=== PATIENT | male | born 1950 | race Caucasian/White ===

== ENCOUNTER 2017-12-20 17:07 | Emergency (ER) | payer OTHER, MEDICARE, SELFPAY ==
[2017-12-20 17:08] VITALS: BP 122/80; PULSE 88; RESP 13; TEMP 36.2; O2SAT 99
--- NOTE | 2017-12-20 17:30 | ED.NEUROSD ---
HPI - Neuro Symptoms/Deficit General Chief Complaint: Neuro Symptoms/Deficit Stated Complaint: thinks he had a stroke Time Seen by Provider: 12/20/17 17:27 Source: patient Mode of arrival: ambulatory Limitations: no limitations History of Present Illness HPI Narrative: Patient is a 67-year-old male here for evaluation of right arm tingling and concerns of dizziness. Patient states that it sometime today he is unsure the exact onset he had tingling of his right arm. He states that he feels that his symptoms have somewhat improved since the onset this morning. He describes a dizziness but not a vertigo sensation. Very difficult for him to describe the sensation. No other symptoms to include headache, vision changes. On Anticoagulants: No Related Data Home Medications Medication Instructions Recorded Confirmed hydrochlorothiazide 12.5 mg PO QDAY #0 12/08/16 amlodipine 10 mg PO Q DAY #0 05/16/17 cholecalciferol (vitamin D3) 1,000 unit PO Q DAY #0 05/16/17 ferrous gluconate 65 mg PO Q DAY #0 05/16/17 multivitamin [Multiple Vitamins] 2 tab PO QDAY #0 05/16/17 propranolol 10 mg PO Q DAY #0 05/16/17 bisacodyl [Fleet Laxative] 5 mg PO PRN PRN #0 05/23/17 Previous Rx's Medication Instructions Recorded gabapentin [Neurontin] 300 mg PO BID #60 cap 06/01/17 hydrocodone-acetaminophen 0 tab PO Q4HPP PRN #30 06/01/17 Review of Systems Constitutional Denies fatigue, Denies fever(s), Denies headache(s), Denies lethargy and Denies weakness Eyes Denies blurry vision, Denies change in vision and Denies loss of vision ENT Ears, Nose, Mouth, and Throat: Denies dental pain, Denies vertigo, Reports dizziness, Denies headache(s) and Reports disequilibrium Cardiovascular Denies chest pain, Denies syncope, Denies irregular heart rhythm, Denies palpitations, Denies dyspnea and Denies slow heart rate Respiratory Denies cough and Denies dyspnea Gastrointestinal Gastrointestinal: Denies abdominal pain, Denies nausea and Denies vomiting Musculoskeletal Denies abnormal gait and Reports tingling Integumentary/Breasts Denies lesions and Denies rash Neurologic Denies abnormal movements, Denies abnormal speech, Denies abnormal gait, Denies behavioral changes, Denies confusion, Denies vertigo, Reports dizziness, Denies syncope, Denies headache(s), Denies loss of vision, Denies radicular pain, Reports sensory deficit, Reports tingling, Reports paresthesias, Reports disequilibrium and Denies weakness Psychiatric Denies behavioral changes and Denies confusion Endocrine Denies fatigue and Denies palpitations Hematologic/Lymphatic Denies easy bleeding and Denies easy bruising PFSH Medical History Hypertension (Acute) Surgical History No pertinent past surgical history (Acute) Social History Smoking Status: Current every day smoker Exam Initial Vital Signs Initial Vital Signs: Vital Signs Temperature 97.2 F L 12/20/17 17:08 Pulse Rate 88 12/20/17 17:08 Respiratory Rate 13 12/20/17 17:08 Blood Pressure 122/80 12/20/17 17:08 Pulse Oximetry 99 12/20/17 17:08 Const General: cooperative, healthy appearing, comfortable, well developed, well groomed and No acute distress Orientation: alert, awake and oriented x3 HENMT Head: normal to inspection Ears: hearing grossly normal bilaterally Eyes Pupils: PERRL EOM: EOM intact bilaterally Resp Effort & Inspection: normal respiratory effort Auscultation: clear to auscultation bilaterally Cardio Rate: regular rate Rhythm: regular rhythm Heart Sounds: no murmurs Pulses: radial pulses present GI Inspection: non-distended Palpation: soft Skin Lesions: no lesions Rashes: no rashes Neuro General: alert and oriented x3 Cranial Nerves: CN's II-XI intact bilaterally Cognition: normal cognition Speech: speech normal Gait: normal gait Motor: muscle tone normal throughout Sensory Exam: no sensory deficits noted Extrem General: normal to inspection and capillary refill normal Psych Appearance: grossly normal and well kempt Scores ABCD2 Age >= 60 years: yes Initial BP. Either SBP >= 140 or DBP >= 90.: no Clinical features of the TIA: other symptoms Duration of symptoms: >= 60 minutes History of diabetes: no ABCD2 Score: 3 NIH Stroke Scale Level of Conciousness: Alert, keenly responsive Ask month/age: Answers both questions correctly. Open/close eyes, close hand: Performs both tasks correctly Best gaze horizontal: Normal Visual strickland: No visual loss Facial palsy: Normal symetrical movement Left arm drift: No drift for full 10 sec Right arm drift: No drift for full 10 sec Left leg drift: No drift for full 10 sec Right leg drift: No drift for full 10 sec Limb ataxia: Absent Sensory on face/arms/legs: Normal, no sensory loss Best language: No aphasia, normal Dysarthria: Normal Extinction or inattention: No abnormality Total NIH Stroke scale score: 0 Course Orders Ordered: ED Orders 12/20/17 17:31 CT head/brain wo con Stat 12/20/17 17:47 EKG-12 Lead Stat 12/20/17 17:48 Basic Metabolic Panel Stat Complete Blood Count AUTO DIFF Stat Vital Signs - 8 hr 12/20/17 17:08 12/20/17 18:09 Temperature 97.2 F L Pulse Rate 88 70 Respiratory Rate 13 18 Blood Pressure 122/80 Blood Pressure [Right Arm] 119/72 Pulse Oximetry 99 100 MDM - Neuro Symptoms/Deficit Lab Data Attestation: I reviewed the patient's lab results. Result diagrams: 12/20/17 17:48 12/20/17 17:48 Lab Results 12/20/17 12/20/17 Range/Units 17:48 17:48 WBC 6.6 (4.5-11.0) X10^3/uL RBC 4.21 L (4.5-5.9) X10^6/uL Hgb 13.8 (13.5-17.5) g/dL Hct 40.3 L (41-53) % MCV 95.8 (80-100) fL MCH 32.7 (26-34) PG MCHC 34.1 (30-36) % RDW 14.5 (11.6-14.8) % Plt Count 279 (150-400) X10^3/uL Neut % (Auto) 57.2 (50-75) % Lymph % (Auto) 32.2 (25-40) % [place] % (Auto) 9.2 (3-14) % Eos % (Auto) 0.7 L (2-4) % Baso % (Auto) 0.7 (0-2) % Neut # (Auto) 3800 (1528-2257) /uL Sodium 141 (137-145) mmol/L Potassium 3.9 (3.4-5.1) mmol/L Chloride 101 (98-107) mmol/L Carbon Dioxide 27 (22-32) mmol/L BUN 6 L (9-20) mg/dL Creatinine 0.50 L (0.66-1.25) mg/dL Estimated GFR > 60.0 (>60) mL/min BUN/Creatinine Ratio 12.0 (6-22) Glucose 86 (80-110) mg/dL Calcium 8.9 (8.4-10.2) mg/dL Imaging Data CT scan - head: Radiologist's impression: PROCEDURE: CT HEAD/BRAIN WO CON INDICATIONS: right arm weakness TECHNIQUE: Noncontrast 4.5 mm thick angled axial sections acquired from the foramen magnum to the vertex, with coronal and sagittal reformats. For radiation dose reduction, the following was used: automated exposure control, adjustment of mA and/or kV according to patient size. COMPARISON: None. FINDINGS: Image quality: Excellent. CSF spaces: Basal cisterns are patent. No extra-axial fluid collections. The ventricles are symmetric in size and shape. Brain: No intracranial bleeds or masses. There is cerebral volume loss for age, with resultant ventricular and sulcal prominence. There are periventricular and deep white matter chronic small vessel ischemic changes. There is intracranial internal carotid artery atherosclerosis. Skull and face: Calvarium and visualized facial bones appear intact, without suspicious lesions. Sinuses: Visualized sinuses and mastoids are clear. IMPRESSION: 1. No acute intracranial process. 2. Moderate atrophy and chronic microvascular ischemic changes. Dictated by: Bettina Gonzales M.D. on 12/20/2017 at 17:50 Approved by: Bettina Gonzales M.D. on 12/20/2017 at 17:51 ECG Data Attestation: I personally reviewed and interpreted this ECG as follows: Prior ECG tracings: not available for review Interpretation: Sinus rhythm Left axis deviation Ventricular rate is 74 Normal QRS Normal QTC No ST T wave changes MDM Narrative Medical decision making narrative: Patient's head CT shows no signs of bleed or acute ischemia. He has no objective findings on exam here in the emergency department. He has a ABCD2 score of 3 which places him at low risk of 2 days stroke. We did discuss being admitted to the hospital versus being discharged home. After this discussion the patient would like to be discharged to follow up with his primary doctor on Friday. We did discuss the importance of him taking a full dose aspirin over the next couple days. We did discuss return precautions. Patient expressed understanding and agreement with plan. Discharge Plan Departure Patient Disposition: Home Clinical Impression: TIA (transient ischemic attack), Arm paresthesia, right Instructions: DI for Transient Ischemic Attack Activity Restrictions/Additional Instructions: your symptoms today were somewhat concerning for a TIA. I do recommend that you start taking a full dose aspirin on a daily basis. On Friday you do need to contact your primary care doctor to discuss further workup which may include a MRI, echocardiogram, and carotid Dopplers. If your symptoms return or you develop any new symptoms please return to the emergency department for further evaluation. Prescriptions: No Action hydrochlorothiazide 12.5 MG capsule 12.5 mg PO QDAY Qty: 0 RF: 0 propranolol 10 MG tablet 10 mg PO Q DAY Qty: 0 RF: 0 multivitamin [Multiple Vitamins] 1 EACH tablet 2 tab PO QDAY Qty: 0 RF: 0 amlodipine 10 MG tablet 10 mg PO Q DAY Qty: 0 RF: 0 ferrous gluconate 236 MG tablet 65 mg PO Q DAY Qty: 0 RF: 0 cholecalciferol (vitamin D3) 5,000 UNIT capsule 1,000 unit PO Q DAY Qty: 0 RF: 0 bisacodyl [Fleet Laxative] 5 MG tablet,delayed release (DR/EC) 5 mg PO PRN PRNQty: 0 RF: 0 gabapentin [Neurontin] 300 MG capsule 300 mg PO BID Qty: 60 RF: 0 hydrocodone-acetaminophen 5 MG/325 MG tablet PO Q4HPP PRNQty: 30 RF: 0
[2017-12-20 18:03] LABS: Add Manual Diff / Slide Review NO; Basophils Percent Auto 0.7 % (0-2); Eosinophils Percent Auto 0.7 % (2-4); Hematocrit 40.3 % (41-53); Hemoglobin 13.8 g/dL (13.5-17.5); Lymphocytes Percent Auto 32.2 % (25-40); Mean Corpuscular HGB Conc 34.1 % (30-36); Mean Corpuscular Hemoglobin 32.7 PG (26-34); Mean Corpuscular Volume 95.8 fL (80-100); Monocytes Percent Auto 9.2 % (3-14); Neutrophils Absolute Auto 3800 /uL (3000-5900); Neutrophils Percent Auto 57.2 % (50-75); Platelet Count 279 X10^3/uL (150-400); Red Blood Cell Count 4.21 X10^6/uL (4.5-5.9); Red Cell Distribution Width 14.5 % (11.6-14.8); White Blood Cell Count 6.6 X10^3/uL (4.5-11.0)
[2017-12-20 18:09] VITALS: BP 119/72; PULSE 70; RESP 18; O2SAT 100
[2017-12-20 18:27] LABS: Blood Urea Nitrogen 6 mg/dL (9-20); Calcium 8.9 mg/dL (8.4-10.2); Carbon Dioxide 27 mmol/L (22-32); Chloride 101 mmol/L (98-107); Estimated Glomerular Filt Rate > 60.0 mL/min (>60); Glucose 86 mg/dL (80-110); HEMOLYSIS < 15 (0-50); Potassium 3.9 mmol/L (3.4-5.1); Sodium 141 mmol/L (137-145)
[2017-12-20 19:02] VITALS: BP 120/79; PULSE 72; RESP 16; O2SAT 100
== END 2017-12-20 19:02 | disposition home or self-care (01) ==
PROVIDERS: Emergency Provider Emergency Medicine; PCP Family Medicine
DX: G45.9 Transient cerebral ischemic attack, unspecified (principal); R20.2 Paresthesia of skin
CPT/HCPCS: 36591; 70450; 80048; 85025; 93005; 93010; 99282; 99285; 99291

== ENCOUNTER → 2018-02-05 10:32 | Outpatient (CLI) | payer OTHER, MEDICARE, SELFPAY ==
--- NOTE | 2018-02-05 | DI.US.S_ITS ---
PROCEDURE: US CAROTID DOPPLER BI INDICATIONS: HYPERTENSION TECHNIQUE: Color and pulse Doppler interrogation was performed of both carotid systems, with image documentation and velocity measurements. COMPARISON: None. FINDINGS: Stenosis calculations are based on SRU (Society of Radiologists in Ultrasound) criteria. Right side: Brachial blood pressure: 125/86 mm Hg. Common carotid artery peak systolic velocity: 87 cm/sec. Internal carotid artery peak systolic velocity: 78 cm/sec. Internal carotid artery end diastolic velocity: 21 cm/sec. External carotid artery peak systolic velocity: 132 cm/sec. ICA/CCA peak systolic ratio: 0.9. Pimentel scale imaging description: Minimal plaque. Percent internal carotid artery stenosis: Less than 50%. Vertebral artery: Not visualized. Left side: Brachial blood pressure: 122/85 mm Hg. Common carotid artery peak systolic velocity: 100 cm/sec. Internal carotid artery peak systolic velocity: 19 Internal carotid artery end diastolic velocity: 134 cm/sec. External carotid artery peak systolic velocity: 134 cm/sec. ICA/CCA peak systolic ratio: 0.9. Pimentel scale imaging description: Minimal plaque. Percent internal carotid artery stenosis: Less than 50%. Vertebral artery: Flow direction is antegrade. IMPRESSION: Less than 50% bilateral internal carotid artery stenosis. Dictated by: Bryson Bernardo [facility] Interpreted: Dandy Borjas MD on 02/05/2018 at 11:36 Approved by: Dandy Borjas M.D. on 02/05/2018 at 12:35
== END ==
PROVIDERS: PCP Family Medicine; Visit Provider Family Medicine
DX: I65.23 Occlusion and stenosis of bilateral carotid arteries (principal); I10 Essential (primary) hypertension
CPT/HCPCS: 93880

== ENCOUNTER 2018-06-02 06:18 | Day surgery (SDC) | payer OTHER, MEDICARE, SELFPAY ==
--- NOTE | 2018-06-02 | PATH_ITS ---
[facility] [place] Accession Number: [id number] . 01 Material submitted: . PART A: COLON POLYPS AT 70CM PART B: COLON POLYP CECUM PART C: COLON POLYP AT 35CM . 02 Diagnosis: A. Colon at 70 cm, Polyps: Fragments of tubular adenoma and fragments of colonic mucosa with prominent benign lymphoid aggregates. . B. Cecum, Polyp: Tubular adenoma. . C. Colon at 35 cm, Polyp: Granulation tissue/inflammatory polyp. MRV/06/03/2018 . 02 Electronically signed: . Rebel Todd MD, PhD, Pathologist NPI- [id number] . 01 Gross description: . Part A: COLON POLYPS AT 70CM: Received in formalin are multiple fragment(s) of ivory, soft tissue measuring 0.1 x 0.1 x 0.1 cm to 0.6 x 0.4 x 0.4 cm which is entirely submitted and submitted entirely in 1 cassette(s) .. Part B: COLON POLYP CECUM: Received in formalin is 1 fragment(s) of ivory, soft tissue measuring 0.4 x 0.2 x 0.2 cm which is entirely submitted and submitted entirely in 1 cassette(s) Part C: COLON POLYP AT 35CM: Received in formalin are 3 fragment(s) of ivory, soft tissue measuring 0.1 x 0.1 x 0.1 cm to 0.3 x 0.3 x 0.3 cm which is entirely submitted and submitted entirely in 1 cassette(s) /DMC /DMC . 02 Pathologist provided ICD-10: D12.0, D12.6, K51.40 . 02 CPT . 683322, 146326, 990509 Performed at: [address], [place], [place] [id number] MD Rustam Hanks MD Phone: [phone] Performed at: 02 [facility] [id number] [place] [id number] MD Ivania Neves MD Phone: [phone]
[2018-06-02 07:19] VITALS: BP 123/79; PULSE 72; RESP 14; TEMP 36.6; O2SAT 99; BMI 24.7
--- NOTE | 2018-06-02 07:52 | PM.HP.1 ---
History of Present Illness Date Patient Seen: 06/02/18 Time Patient Seen: 07:52 Chief complaint: [id number] COLONOSCOPY Narrative: The patient is a gentleman here for colonoscopy. He had a resection of his colon about a year ago. This was for cancer. No family history. Patient History Medical History Bruises easily (Acute) Has a tremor (Acute) Hiatal hernia (Acute) Seasonal allergies (Acute) TBI (traumatic brain injury) (Acute ~2010) Hypertension (Acute) Surgical History History of colon resection (Acute) Social History household members: spouse Smoking Status: Current every day smoker Family & Social History Social History: household members spouse Tobacco & Substance use: Smoking Status Current every day smoker alcohol intake frequency 0-2 drinks per day Substance Use Type does not use Meds Home Medications Medication Instructions Recorded Confirmed Type hydrochlorothiazide 12.5 mg PO QDAY #0 12/08/16 06/02/18 History amlodipine 10 mg PO Q DAY #0 05/16/17 06/02/18 History cholecalciferol (vitamin D3) 1,000 unit PO Q DAY #0 05/16/17 06/02/18 History ferrous gluconate 65 mg PO Q DAY #0 05/16/17 06/02/18 History multivitamin [Multiple Vitamins] 2 tab PO QDAY #0 05/16/17 06/02/18 History propranolol 10 mg PO Q DAY #0 05/16/17 06/02/18 History bisacodyl [Fleet Laxative] 5 mg PO PRN PRN #0 05/23/17 06/02/18 History Review of Systems Review of Systems All systems reviewed & are unremarkable except as noted in HPI and below Exam Vital Signs (past 8 hours): - 06/02/18 07:19 Temperature 97.8 F Pulse Rate 72 Respiratory Rate 14 Blood Pressure 123/79 Pulse Oximetry 99 Oxygen Delivery Method Room Air Narrative Exam Narrative: Operative no apparent distress. Lungs are clear no rales or rhonchi heart regular rate and rhythm no murmur or gallop abdomen is soft nontender without mass. Alert and oriented x3. Assessment & Plan Assessment & Plan narrative: Patient for colonoscopy 1 year post resection of his colon for cancer. I have discussed the procedure and rationale. Risks of bleeding, perforation which necessitated operation, failure to find removal lesions a potential tattoo were discussed.
--- NOTE | 2018-06-02 07:54 | PM.PREOP ---
Pre-operative Note Interval Note History & Physical reviewed/Exam performed by Physician: Yes Changes to H&P: No ASA Class (for procedural sedation): III
[2018-06-02] MEDS: fentaNYL 250 MCG/5 ML INJ IV (08:05)
[2018-06-02] MEDS: MIDAZOLAM 5 MG/5 ML VIAL IV (08:06)
--- NOTE | 2018-06-02 08:40 | PM.OP.ENDO ---
Operative Date/Time/Diagnoses Date of procedure: 06/02/18 Time of procedure: 08:40 Pre-op diagnosis: History of colon cancer and multiple polyps Post-op diagnosis: same (Multiple polyps) Procedure & Clinicians Study performed: Colonoscopy with cold biopsy and hot snare polypectomy Same procedure as scheduled: Yes Indications: Follow-up after colon cancer operation 1 year ago Surgeon: Tate Rodriguez Procedure Notes SCOAP/Timeout: Performed Procedure in detail: The patient is placed in left lateral decubitus position underwent IV sedation directed by the surgeon consisting of fentanyl and Versed. Digital exam was remarkable for enlarged prostate. Scope was inserted advanced through the rectum to the level of the anastomosis. I probed all of the limbs and there was no evidence of lesion anywhere in this area. Scope was advanced into the descending and transverse colon. At 70 cm there was a small polyp which was biopsied and appeared to be removed. I continued on into the ascending colon and cecum. The cecum was identified by the ileocecal valve and the appendiceal opening. Within the in the cecum there was a small polyp which was biopsied and removed. scope was then gradually brought out. In the area around 70 cm I encountered at least 3 flat polyps which were snared and appeared to be removed. is very difficult to tell however. These were placed in the container with the 1st biopsy. I continued outward. At 40 cm there was a small polyp which was snared in this area where the small polyp was located there was a slight irregularity of the mucosa. I thought it was a normal variant but if the biopsy of the lesion at 40 cm is neoplastic I would consider removing additional area in this location. The scope was brought into the rectum ultimately and retroflexed. The patient has some enlarged hemorrhoids but no ulceration on them. The scope was removed and the patient tolerated the procedure well. Scope withdrawal time: 25 minutes Sedation minutes: 38 Findings: polyp (Multiple) Specimen(s): other (Polyps) Complications: none Recommendations: Other recommendation (Colonoscopy in 6 months to re-evaluate the area around 70 cm and at 40 cm if the polyp was neoplastic in that location.) Follow up: months (Six) Disposition: PACU
[2018-06-02 08:45] VITALS: BP 108/64; PULSE 64; RESP 12; TEMP 37.2; O2SAT 98
[2018-06-02 08:50] VITALS: BP 104/65; PULSE 70; RESP 15; TEMP 37.2; O2SAT 97
[2018-06-02 08:55] VITALS: BP 103/71; PULSE 65; RESP 19; TEMP 37.1; O2SAT 98
--- NOTE | 2018-06-02 08:57 | SUR.PHASEI ---
NS iv not listed in MAR. pt arrived to PACU with 800 cc infused
== END 2018-06-02 09:10 | disposition home or self-care (01) ==
PROVIDERS: PCP Family Medicine; Visit Provider Specialist
PROC: 0DJD8ZZ Inspection of Lower Intestinal Tract, Via Natural or Artificial Opening Endoscopic (ICD-10-PCS; CPT 45378; principal; 2018-06-02 07:45)
DX: Z85.038 Personal history of other malignant neoplasm of large intestine (principal); Z08 Encounter for follow-up examination after completed treatment for malignant neoplasm; F17.210 Nicotine dependence, cigarettes, uncomplicated; R25.1 Tremor, unspecified; I10 Essential (primary) hypertension; Z87.820 Personal history of traumatic brain injury; K64.9 Unspecified hemorrhoids; D12.0 Benign neoplasm of cecum; D12.6 Benign neoplasm of colon, unspecified; K51.40 Inflammatory polyps of colon without complications
CPT/HCPCS: 44394; 99152; 99153; J2250; J3010

== ENCOUNTER 2018-12-15 06:39 | Day surgery (SDC) | payer OTHER, MEDICARE, SELFPAY ==
--- NOTE | 2018-12-15 | PATH_ITS ---
[facility] Accession Number: [id number] . 01 Material submitted: . PART A: body - POLYP AT 75 CM PART B: colon - POLYPS ASCENDING COLON NEAR CECUM X4 PART C: body - POLYPS AT 65 CM X2 . 01 Clinical history: . COLONOSCOPY . 02 Diagnosis: A. Colon at 75 cm, Polyp: Tubular adenoma. . B. Ascending Colon, Near Cecum, Polyps: Fragments of tubular adenoma (four polyps removed). . C. Colon at 65 cm, Polyps: Fragments of tubular adenoma (two polyps removed). MRV 12/16/2018 1539 Local . 02 Electronically signed: . Rebel Todd MD, PhD, Pathologist NPI- [id number] . 01 Gross description: . Part A: POLYP AT 75 CM: Received in formalin are 2 fragment(s) of ivory, soft tissue measuring 0.4 x 0.3 x 0.2 cm to 0.4 x 0.4 x 0.1 cm submitted entirely in 1 cassette(s) Part B: POLYPS ASCENDING COLON NEAR CECUM X4: Received in formalin are multiple fragment(s) of ivory, soft tissue measuring 3.0 x 1.5 x 0.3 cm submitted entirely in 1 cassette(s) Part C: POLYPS AT 65 CM X2: Received in formalin are multiple fragment(s) of ivory, soft tissue measuring 1.5 x 0.8 x 0.3 cm in aggregate submitted entirely in 1 cassette(s) /QBJ 12/15/20182020 Local . 02 Pathologist provided ICD-10: D12.2, D12.6 . 02 CPT . 840760, 253876, 982390 Performed at: [address] [id number] MD Rustam Hanks MD Phone: [phone] Performed at: 02 [facility] [id number] [place] [id number] MD Ivania Neves MD Phone: [phone]
[2018-12-15 07:27] VITALS: BP 120/80; PULSE 85; RESP 16; TEMP 36.7; O2SAT 98
[2018-12-15 07:36] VITALS: BMI 24.0
[2018-12-15] MEDS: SODIUM CHLORIDE 0.9% 1,000 ML 200 ML IV (07:36)
--- NOTE | 2018-12-15 10:29 | PM.HP.1 ---
History of Present Illness History of Present Illness Date Patient Seen: 12/15/18 Time Patient Seen: 10:29 Chief complaint: [id number] COLONOSCOPY Narrative: Patient is gentleman who had colon cancer resected. His last colonoscopy 6 months ago which was the 2nd since his operation had polyps and he is brought for repeat exam. Patient History Medical History Bruises easily (Acute) Has a tremor (Acute) Hiatal hernia (Acute) Hypertension (Acute) Seasonal allergies (Acute) TBI (traumatic brain injury) (Acute ~2010) Surgical History History of colon resection (Acute) Social History household members: spouse Smoking Status: Current every day smoker Family & Social History Social History: household members spouse Tobacco & Substance use: Smoking Status Current every day smoker alcohol intake frequency 0-2 drinks per day Substance Use Type does not use Meds Home Medications and Allergies Home Medications Medication Instructions Recorded Confirmed Type hydrochlorothiazide 12.5 mg PO QDAY #0 12/08/16 12/15/18 History amlodipine 10 mg PO Q DAY #0 05/16/17 12/15/18 History cholecalciferol (vitamin D3) 1,000 unit PO Q DAY #0 05/16/17 12/15/18 History ferrous gluconate 65 mg PO Q DAY #0 05/16/17 12/15/18 History multivitamin [Multiple Vitamins] 2 tab PO QDAY #0 05/16/17 12/15/18 History propranolol 10 mg PO Q DAY #0 05/16/17 12/15/18 History Allergies Allergy/AdvReac Type Severity Reaction Status Date / Time No Known Drug Allergies Allergy Verified 12/15/18 07:23 Review of Systems Review of Systems ROS Unobtainable: All systems reviewed & are unremarkable except as noted in HPI and below Exam Vital Signs (past 8 hours): - 12/15/18 07:27 Temperature 98.0 F Pulse Rate 85 Respiratory Rate 16 Blood Pressure 120/80 Pulse Oximetry 98 Oxygen Delivery Method Room Air Narrative Exam Narrative: Pleasant cooperative patient no apparent distress. Lungs are clear to auscultation. No rales or rhonchi. Heart regular rate and rhythm no murmur gallop. Abdomen is soft nontender without mass. No obvious hernias. Patient is alert and oriented x3. Assessment & Plan Assessment & Plan narrative: The patient for a screening colonoscopy. I have discussed the procedure with them. Risks of bleeding, perforation which would necessitate major operation, failure to find remove all lesions, the potential tattoo were all discussed. All questions were answered. They wished to proceed.
--- NOTE | 2018-12-15 10:31 | PM.PREOP ---
Pre-operative Note Interval Note History & Physical reviewed/Exam performed by Physician: Yes Changes to H&P: No ASA Class (for procedural sedation): II
[2018-12-15] MEDS: fentaNYL 250 MCG/5 ML INJ IV (11:20)
[2018-12-15] MEDS: MIDAZOLAM 5 MG/5 ML VIAL IV (11:21)
--- NOTE | 2018-12-15 11:22 | PM.OP.ENDO ---
Operative Date/Time/Diagnoses Date of procedure: 12/15/18 Time of procedure: 11:22 Pre-op diagnosis: History of polyps. History of colon cancer. Post-op diagnosis: same Procedure & Clinicians Study performed: Colonoscopy with hot snare polypectomy multiple Same procedure as scheduled: Yes Indications: Patient with numerous polyps 6 months ago brought back to make sure there is no regrowth. He has form numerous large polyps in the past. He has had a sigmoid colon resection for cancer. Surgeon: Tate Rodriguez Procedure Notes SCOAP/Timeout: Performed Procedure in detail: The patient was placed in the left lateral decubitus position and underwent IV sedation directed by the surgeon consisting of fentanyl and Versed. Digital exam was remarkable for very large prostate. The scope was inserted and advanced through the rectum into the area of the anastomosis at 15 cm. There were visible kaia but it was otherwise unremarkable. The scope was advanced into the Descending, transverse, and ascending colon. Ultimately I reached the cecum. The cecum was reached identified by the ileocecal valve and the appendiceal opening. The scope was gradually brought out. Flat Polyps and/or healed prior polyp sites were found at ascending colon times for at 75 cm and at 65 cm x 2 these were all. At or just over 1 cm polyps. I had to cut some of them with the snare in order to suction them through. All appeared to be benign however.. The scope ultimately was brought into the rectum. The appearance was normal. The scope was removed and the patient tolerated the procedure well. The prep was good Scope withdrawal time: Over 30 minutes Sedation minutes: 50 Findings: diverticulosis and polyp (Multiple flat lesions) Specimen(s): other (Polyps) Complications: none Post-procedure Recommendations: Other recommendation (Colonoscopy in 6 months) Follow up: as needed Disposition: PACU
[2018-12-15 11:25] VITALS: BP 102/74; PULSE 97; RESP 19; TEMP 37.1; O2SAT 98
[2018-12-15 11:30] VITALS: BP 110/62; PULSE 89; RESP 14; O2SAT 96
[2018-12-15 11:35] VITALS: BP 105/65; BP 109/72; PULSE 89; PULSE 94; RESP 15; RESP 16; TEMP 36.6; O2SAT 96; O2SAT 97
== END 2018-12-15 12:03 | disposition home or self-care (01) ==
PROVIDERS: PCP Family Medicine; Visit Provider Specialist
PROC: 0DJD8ZZ Inspection of Lower Intestinal Tract, Via Natural or Artificial Opening Endoscopic (ICD-10-PCS; CPT 45378; principal; 2018-12-15 08:45)
DX: Z85.038 Personal history of other malignant neoplasm of large intestine (principal); Z86.010 Personal history of colon polyps; I10 Essential (primary) hypertension; F17.210 Nicotine dependence, cigarettes, uncomplicated; D12.2 Benign neoplasm of ascending colon; D12.6 Benign neoplasm of colon, unspecified; K57.30 Diverticulosis of large intestine without perforation or abscess without bleeding
CPT/HCPCS: 45385; 99152; 99153; J2250; J3010

== ENCOUNTER 2019-04-22 01:55 | Emergency (ER) | payer OTHER, MEDICARE, SELFPAY ==
[2019-04-22 02:06] VITALS: BP 140/73; PULSE 83; RESP 18; TEMP 36.3; O2SAT 100
--- NOTE | 2019-04-22 02:13 | DI.US.S_ITS ---
PROCEDURE: US SCROTUM INDICATIONS: LEFT TESTICULAR PAIN TECHNIQUE: Real-time scanning was performed of the scrotum and testicles, with image documentation. Color and pulse Doppler interrogation was performed of both testicles. COMPARISON: None. FINDINGS: Right: Testicle is normal in size at 4.8 x 2.9 x 2.3 cm, and homogenous in echotexture. Epididymis is normal in overall size and morphology. Small hydrocele noted. No varicoceles. Overlying scrotal skin is normal in thickness. Left: Testicle is normal in size at 4.3 x 2.4 x 3.3 cm, and homogeneous in echotexture. Epididymis is normal in overall size and morphology. No hydrocele or varicoceles. Overlying scrotal skin is normal in thickness. Doppler: Color and pulse Doppler demonstrate normal and symmetric arterial flow in both testicles. IMPRESSION: 1. No evidence of testicular torsion. Please note ultrasound cannot exclude intermittent torsion. 2. Small right hydrocele. Dictated by: Lyndsey Franco MD, PhD on 04/22/2019 at 8:34 Approved by: Lyndsey Franco MD, PhD on 04/22/2019 at 8:35
--- NOTE | 2019-04-22 02:13 | ED.GENADULT ---
HPI - General Adult General Chief complaint: Urogenital-Male Stated complaint: severe pain left groin area Time Seen by Provider: 04/22/19 02:08 Source: patient Mode of arrival: Ambulatory Limitations: no limitations History of Present Illness HPI narrative: 68-year-old male here for left-sided groin pain. Patient states the symptoms started just several hours prior to arrival here in the ER. Initial reported that he was having problems urinating however has had a normal urination since then. No vomiting. No change in bowel habits. No abdominal pain. Has not tried anything for symptoms. He was sleeping at the time of the onset. No trauma. Related Data Home Medications Medication Instructions Recorded Confirmed hydrochlorothiazide 12.5 mg PO QDAY #0 12/08/16 12/15/18 amlodipine 10 mg PO Q DAY #0 05/16/17 12/15/18 cholecalciferol (vitamin D3) 1,000 unit PO Q DAY #0 05/16/17 12/15/18 ferrous gluconate 65 mg PO Q DAY #0 05/16/17 12/15/18 multivitamin [Multiple Vitamins] 2 tab PO QDAY #0 05/16/17 12/15/18 propranolol 10 mg PO Q DAY #0 05/16/17 12/15/18 Allergies Allergy/AdvReac Type Severity Reaction Status Date / Time No Known Drug Allergies Allergy Verified 12/15/18 07:23 Review of Systems Constitutional Constitutional: Denies headache(s) ENT Ears, Nose, Mouth, and Throat: Denies headache(s) Cardiovascular Cardiovascular: Denies chest pain and Denies dyspnea Respiratory Respiratory: Denies dyspnea Gastrointestinal Gastrointestinal: Denies abdominal pain, Denies nausea and Denies vomiting Genitourinary Comments: Left-sided groin pain Integumentary/Breasts Skin/Breast: Denies lesions and Denies rash Neurologic Neurologic: Denies headache(s) Hematologic/Lymphatic Hematologic/Lymphatic: Denies easy bleeding and Denies easy bruising Patient History Medical History Bruises easily (Acute) Has a tremor (Acute) Hiatal hernia (Acute) Hypertension (Acute) Seasonal allergies (Acute) TBI (traumatic brain injury) (Acute ~2010) Surgical History History of colon resection (Acute) Social History household members: spouse Smoking Status: Current every day smoker Smoking Status: Current every day smoker alcohol intake frequency: 0-2 drinks per day Substance Use Type: does not use Exam Initial Vital Signs Initial Vital Signs: Vital Signs Temperature 97.3 F L 04/22/19 02:06 Pulse Rate 83 04/22/19 02:06 Respiratory Rate 18 04/22/19 02:06 Blood Pressure 140/73 04/22/19 02:06 Pulse Oximetry 100 04/22/19 02:06 Const General: cooperative, healthy appearing and comfortable HENMT Head: normal to inspection and normocephalic Resp Effort & Inspection: normal respiratory effort Auscultation: clear to auscultation bilaterally Cardio Rate: regular rate GI Inspection: non-distended Palpation: soft Penis: normal penis Scrotum: scrotum normal Testes: normal Back/Spine/Pelvis Back: No CVA tenderness Skin Lesions: no lesions Rashes: no rashes Neuro General: alert, awake and oriented x3 Cognition: normal cognition Speech: speech normal Extrem General: normal to inspection and capillary refill normal Psych Appearance: grossly normal and well kempt Course Orders Ordered: ED Orders 04/22/19 02:13 US scrotum Stat Vital Signs Vital signs: Vital Signs - 8 hr 04/22/19 02:06 04/22/19 03:14 Temperature 97.3 F L Pulse Rate 68 Pulse Rate [Left] 83 Respiratory Rate 18 18 Blood Pressure [Left Arm] 140/73 140/78 Pulse Oximetry 100 98 Medical Decision Making Lab Data Labs: Urine Dip Bedside Urine Glucose Negative Bedside Urine Bilirubin - Negative Bedside Urine Ketone ++ 40 Urine Specific [place] 1.005 Bedside Urine Occult Blood - Negative Bedside Urine pH 6.5 Bedside Urine Protein - Negative Bedside Urine Urobilinogen - Negative Bedside Urine Nitrite - Negative Bedside Urine Leukocytes - Negative Esterase Point of care testing: Urine Dip Bedside Urine Glucose Negative Bedside Urine Bilirubin - Negative Bedside Urine Ketone ++ 40 Urine Specific [place] 1.005 Bedside Urine Occult Blood - Negative Bedside Urine pH 6.5 Bedside Urine Protein - Negative Bedside Urine Urobilinogen - Negative Bedside Urine Nitrite - Negative Bedside Urine Leukocytes - Negative Esterase Imaging Data Testicular ultrasound: Attestation: I personally reviewed and interpreted this imaging study as follows: My Impression: No testicular torsion Small right hydrocele MDM Narrative Medical decision making narrative: Urinalysis shows no signs of infection. His exam is not consistent with a torsion or hernia. His ultrasound confirms this. Has a relatively benign exam. Does seem to be the left-sided epididymis/vas deferens were he seems to be having the discomfort. We can hold on any antibiotics for now. We did discuss the use of anti-inflammatories. Also the use of supportive clothing. He was given return precautions and follow-up instructions. He expressed understanding and agreement with plan. Discharge Plan Departure Patient Disposition: Home Clinical Impression: Left groin pain Activity Restrictions/Additional Instructions: I recommend that you wear supportive clothing. He could also use ice over the area. You can take ibuprofen as needed. Contact your primary provider for follow-up. Return to the emergency department for any new or worsening symptoms Prescriptions: No Action hydrochlorothiazide 12.5 MG capsule 12.5 mg PO QDAY Qty: 0 RF: 0 propranolol 10 MG tablet 10 mg PO Q DAY Qty: 0 RF: 0 multivitamin [Multiple Vitamins] 1 EACH tablet 2 tab PO QDAY Qty: 0 RF: 0 amlodipine 10 MG tablet 10 mg PO Q DAY Qty: 0 RF: 0 ferrous gluconate 236 MG tablet 65 mg PO Q DAY Qty: 0 RF: 0 cholecalciferol (vitamin D3) 5,000 UNIT capsule 1,000 unit PO Q DAY Qty: 0 RF: 0 Referrals: Shabnam Scruggs DO [Primary Care Provider] -
[2019-04-22 03:14] VITALS: BP 140/78; PULSE 68; RESP 18; O2SAT 98
== END 2019-04-22 04:25 | disposition home or self-care (01) ==
PROVIDERS: Emergency Provider Emergency Medicine; PCP Family Medicine
DX: R10.32 Left lower quadrant pain (principal)
CPT/HCPCS: 76870; 81003; 99283

== ENCOUNTER → 2019-08-30 14:36 | Outpatient (CLI) | payer OTHER, MEDICARE, SELFPAY ==
[2019-09-01 06:39] LABS: COVID19 Sendout Not Detected (Not Detect)
== END ==
PROVIDERS: PCP Family Medicine; Visit Provider Physician Assistant
DX: Z01.812 Encounter for preprocedural laboratory examination (principal)
CPT/HCPCS: 87635

== ENCOUNTER → 2019-09-13 08:18 | Outpatient (CLI) | payer OTHER, MEDICARE, SELFPAY ==
[2019-09-14 09:36] LABS: COVID19 Sendout Not Detected (Not Detect)
== END ==
PROVIDERS: PCP Family Medicine; Visit Provider Student in an Organized Health Care Education/Training Program
DX: Z01.812 Encounter for preprocedural laboratory examination (principal)
CPT/HCPCS: 87635

== ENCOUNTER 2019-09-16 06:37 | Day surgery (SDC) | payer OTHER, MEDICARE, SELFPAY ==
[2019-09-16] VITALS (8 sets, daily range): BP systolic 98–134; BP diastolic 68–86; PULSE 68–82; RESP 16–20; TEMP 36.1–36.8; O2SAT 95–99; BMI 25.7
--- NOTE | 2019-09-16 | PATH_ITS ---
[facility] Accession Number: [id number] . 01 Material submitted: . PART A: colon - TRANSVERSE COLON POLYP AT 80CM X2 PART B: colon - CECAL POLYP PART C: colon - COLON POLYP BIOPSY AT 55CM X3 . 01 Clinical history: . COLONOSCOPY . 02 Diagnosis: A. Transverse Colon Polyp At 80 CM X2: Multiple (approximately 8) portions of tubular adenoma. Superficial portions of colorectal mucosa (approximately 5) with benign lymphoid aggregates and no significant histomorphologic abnormality. . B. Cecal Polyp: Portions of tubular adenoma x2. . C. Colon Polyp Biopsy At 55 CM X3: Multiple (approximately 5) portions of tubular adenoma. Superficial portions of colorectal mucosa x3, with benign lymphoid aggregates and no significant histomorphologic abnormality. . . [facility] 09/17/2019 1338 Local . 02 Electronically signed: . Elyse Lowery MD, Pathologist NPI- [id number] . 01 Gross description: . Part A: TRANSVERSE COLON POLYP AT 80CM X2: Received in formalin are multiple fragment(s) of ivory, soft tissue measuring 0.1 x 0.1 x 0.1 cm to 0.3 x 0.3 x 0.2 cm submitted entirely in 1 cassette(s) Part B: CECAL POLYP: Received in formalin are 2 fragment(s) of ivory, soft tissue measuring 0.1 x 0.1 x 0.1 cm to 0.2 x 0.2 x 0.2 cm submitted entirely in 1 cassette(s) Part C: COLON POLYP BIOPSY AT 55CM X3: Received in formalin are multiple fragment(s) of ivory, soft tissue measuring 0.1 x 0.1 x 0.1 cm to 0.6 x 0.5 x 0.4 cm submitted entirely in 1 cassette(s) /[facility] 09/17/2019 0038 Local . 02 Pathologist provided ICD-10: K63.5, Z85.038 . 02 CPT . 797562, 598050, 031504 Performed at: 01 [facility] [address] [address], [place], [place] [id number] MD Rustam Hanks MD Phone: [phone] Performed at: 02 [facility] [address] [place], [place] [id number] MD Ivania Neves MD Phone: [phone]
[2019-09-16] MEDS: LACTATED RINGERS 1,000 ML 200 ML IV (07:23)
--- NOTE | 2019-09-16 07:38 | PM.HP.1 ---
History of Present Illness History of Present Illness Date Patient Seen: 09/16/19 Time Patient Seen: 07:38 Chief complaint: [id number] COLONOSCOPY Narrative: The patient is gentleman post resection of a colon cancer in the sigmoid colon in 2018 last exam was 2019 in June. He is here for surveillance exam Patient History Medical History Bruises easily (Acute) Has a tremor (Acute) Hiatal hernia (Acute) Hypertension (Acute) Seasonal allergies (Acute) TBI (traumatic brain injury) (Acute ~2010) Surgical History History of colon resection (Acute) Family & Social History Social History: household members spouse Tobacco & Substance use: Tobacco type smokeless tobacco Smoking Status Current some day smoker alcohol intake frequency 3 or more drinks per day Substance Use Type does not use Meds Home Medications and Allergies Home Medications Medication Instructions Recorded Confirmed Type hydrochlorothiazide 12.5 mg PO QDAY #0 12/08/16 09/16/19 History amlodipine 10 mg PO Q DAY #0 05/16/17 12/15/18 History cholecalciferol (vitamin D3) 1,000 unit PO Q DAY #0 05/16/17 09/16/19 History multivitamin [Multiple Vitamins] 2 tab PO QDAY #0 05/16/17 09/16/19 History propranolol 10 mg PO Q DAY #0 05/16/17 09/16/19 History omeprazole magnesium [Prilosec OTC] 40 mg PO DAILY 09/16/19 09/16/19 History Allergies Allergy/AdvReac Type Severity Reaction Status Date / Time No Known Drug Allergies Allergy Verified 09/16/19 07:17 Review of Systems Review of Systems Narrative: Takes propranolol for anxiety and not cardiac or blood pressure issues ROS: Yes All systems reviewed with the patient and are negative except as otherwise documented Exam Vital Signs (past 8 hours): - 09/16/19 07:23 Temperature 97.2 F L Pulse Rate 82 Respiratory Rate 20 Blood Pressure 134/86 Pulse Oximetry 99 Oxygen Delivery Method Room Air Narrative Exam Narrative: Cooperative in no apparent distress eyes are nonicteric. Lungs are clear to auscultation without rales or rhonchi. Heart regular rate and rhythm without murmur gallop. Abdomen is scaphoid soft nontender without mass. No ventral hernias appreciated. Scars from his prior operation are noted. Assessment & Plan Assessment & Plan narrative: Here for surveillance colonoscopy. I have discussed the procedure and the rationale with the patient including risks of bleeding, perforation which would necessitate a major operation, failure to find remove all lesions and the potential to tattoo. They appeared to understand and wished to proceed.
[2019-09-16] MEDS: MIDAZOLAM 5 MG/5 ML VIAL IV (07:51)
[2019-09-16] MEDS: fentaNYL 250 MCG/5 ML INJ IV (07:51)
--- NOTE | 2019-09-16 07:53 | PM.PREOP ---
Pre-operative Note COVID-19 COVID-19 status: Negative Result date/Date tested (Pos, Neg/Pending): 09/13/19 Interval Note History & Physical reviewed/Exam performed by Physician: Yes Changes to H&P: No ASA Class (for procedural sedation): II
--- NOTE | 2019-09-16 09:00 | PM.OP.ENDO ---
Procedure Notes Procedure in detail: Operative Date/Time/Diagnoses Date of procedure: 09/16/19 Time of procedure: 08:47 Pre-op diagnosis: The patient is a gentleman with a history of sigmoid colon cancer. Last exam was a little over a year ago Post-op diagnosis: same (Six polyps removed some in the area of scar prior polypectomies) Procedure & Clinicians Study performed: Colonoscopy with cold biopsy and hot snare polypectomy Same procedure as scheduled: Yes Indications: Surveillance for colon cancer Surgeon: Tate Rodriguez Procedure Notes SCOAP/Timeout: Performed Procedure in detail: The patient was placed in the left lateral decubitus position and underwent IV sedation directed by the surgeon consisting of fentanyl and Versed. Digital exam was remarkable for an enlarged prostate. I could feel no dominant mass however.. The scope was inserted and advanced through the rectum into the sigmoid, descending, transverse, and ascending colon. Identified a polyp on the way in which I removed. The anastomosis was noted at about 20 cm from the anal verge and there was a diverticulum seen adjacent to it. The cecum was reached identified by the ileocecal valve and the appendiceal opening. The scope was gradually brought out. Multiple Polyps were found. These were located in the cecum(one), 80 cm from the anal verge(3, one of which was snared) and about 55 cm from the anal verge(one of which was snared). One of the lesions at 80 cm and at 55 cm was adjacent to scar or any ink injections site and were snared with a hot snare. The scope ultimately was retroflexed in the rectum. The appearance was normal. The scope was removed and the patient tolerated the procedure well. Prep was very good Scope withdrawal time: 25 minutes total Sedation minutes: 46 Findings: diverticulosis, polyp (Multiple) and other findings (Enlarged prostate) Specimen(s): other (Polyps) Complications: none Post-procedure Recommendations: Colonscopy in 1 year Plan for aftercare: Repeat colonoscopy in 1 year Follow up: as needed Disposition: PACU Signed By:<Electronically signed by Tate Rodriguez MD>09/16/19 0852
== END 2019-09-16 09:30 | disposition home or self-care (01) ==
PROVIDERS: PCP Family Medicine; Referring Provider Specialist; Visit Provider Specialist
PROC: 0DJD8ZZ Inspection of Lower Intestinal Tract, Via Natural or Artificial Opening Endoscopic (ICD-10-PCS; CPT 45378; principal; 2019-09-16 07:45)
DX: Z12.11 Encounter for screening for malignant neoplasm of colon (principal); Z85.038 Personal history of other malignant neoplasm of large intestine; K57.30 Diverticulosis of large intestine without perforation or abscess without bleeding; N40.0 Benign prostatic hyperplasia without lower urinary tract symptoms; D12.3 Benign neoplasm of transverse colon; D12.0 Benign neoplasm of cecum; D12.6 Benign neoplasm of colon, unspecified
CPT/HCPCS: 45385; 45380; 99152; 99153; J2250; J3010

== ENCOUNTER 2020-10-13 18:24 | Emergency (ER) | payer OTHER, MEDICARE, SELFPAY ==
[2020-10-13 18:27] VITALS: BP 158/88; PULSE 70; RESP 14; TEMP 36.6; O2SAT 98; BMI 27.8
[2020-10-13 23:15] LABS: Prothrombin Time 11.1 SECONDS (10.1-12.7)
--- NOTE | 2020-10-13 23:16 | DI.US.S_ITS ---
PROCEDURE: US PERIPH VENOUS LOW EXTREM LT INDICATIONS: EDEMA TECHNIQUE: Real-time imaging, as well as color and pulse Doppler interrogation, were performed of the lower extremity deep veins from the inguinal ligament to the popliteal fossa. COMPARISON: None. FINDINGS: The common femoral, femoral and popliteal veins are normally compressible, and free of intraluminal thrombus. Color and pulse Doppler demonstrate normal phasic intraluminal flow. There is normal augmentation response to distal compression maneuver. IMPRESSION: No evidence of deep venous thrombosis, left lower extremity Note: Final report is concordant with preliminary interpretation by [facility] Approved by: Dov Wheeler M.D. on 10/14/2020 at 6:47
[2020-10-13 23:20] LABS: Add Manual Diff / Slide Review NO; Alanine Aminotransferase 18 IU/L (<50); Albumin Globulin Ratio 1.3 (1.0-2.8); Alkaline Phosphatase 93 U/L (38-126); Aspartate Aminotransferase 58 IU/L (17-59); BUN Creatinine Ratio 8.2 (6-22); Basophils Absolute Auto 0 /uL (0-100); Basophils Percent Auto 0.5 % (0-2); Bilirubin Total 1.4 mg/dL (0.2-1.3); Blood Urea Nitrogen 4 mg/dL (9-20); Calcium 9.1 mg/dL (8.4-10.2); Carbon Dioxide 27 mmol/L (22-32); Chloride 95 mmol/L (98-107); Eosinophils Absolute Auto 0 /uL (0-450); Eosinophils Percent Auto 0.4 % (2-4); Estimated Glomerular Filt Rate > 60.0 mL/min (>60); Globulin 3.2 g/dL (1.7-4.1); Glucose 99 mg/dL (80-110); HEMOLYSIS 18 (0-50); Hematocrit 42.4 % (41-53); Hemoglobin 14.3 g/dL (13.5-17.5); Lymphocytes Absolute Auto 1300 /uL (1100-4500); Lymphocytes Percent Auto 21.1 % (25-40); Mean Corpuscular HGB Conc 33.8 % (30-36); Mean Corpuscular Hemoglobin 33.1 PG (26-34); Mean Corpuscular Volume 97.8 fL (80-100); Monocytes Absolute Auto 600 /uL (0-900); Monocytes Percent Auto 10.3 % (3-14); Neutrophils Absolute Auto 4200 /uL (1500-7000); Neutrophils Percent Auto 67.7 % (50-75); Platelet Count 213 X10^3/uL (150-400); Potassium 4.1 mmol/L (3.4-5.1); Red Blood Cell Count 4.33 X10^6/uL (4.5-5.9); Red Cell Distribution Width 12.9 % (11.6-14.8); Sodium 129 mmol/L (137-145); Total Protein 7.2 g/dL (6.3-8.2); White Blood Cell Count 6.2 X10^3/uL (4.5-11.0)
[2020-10-13 23:30] LABS: Creatine Kinase 94 U/L (55-170)
[2020-10-13 23:31] LABS: PTT Partial Thromboplastin Tim 31 SECONDS (26.4-36.2)
[2020-10-13 23:43] LABS: Troponin I < 0.012 ng/mL (0.01-0.034)
--- NOTE | 2020-10-14 00:06 | ED.EXTPRO ---
HPI - Extremity Problem General Chief complaint: Extremity Problem,Nontraumatic Stated complaint: SWELLING OF LEFT LEG AND FOOT Time Seen by Provider: 10/13/20 23:16 Source: patient Mode of arrival: Ambulatory Limitations: no limitations History of Present Illness HPI Narrative: Patient is a 70-year-old male presents with left leg swelling ongoing for last 2-3 days. He denies numbness tingling or weakness. He has not had any travel. He says he has not been moving as much just because he has been [place]. He is not significantly obese. He has no chest pain palpitation shortness of breath or any other symptoms. He says he typically tries not to go to doctors although he does have when he sees on occasion. According to records patient does have a history of colon cancer is in the sigmoid in 2018 treated with a resection. He denies any fever chills, weight loss, increased fatigue, or any other concerning symptoms. Related Data Home Medications Medication Instructions Recorded Confirmed hydrochlorothiazide 12.5 mg capsule 12.5 mg PO QDAY #0 12/08/16 09/16/19 amlodipine 10 mg tablet 10 mg PO Q DAY #0 05/16/17 12/15/18 cholecalciferol (vitamin D3) 125 1,000 unit PO Q DAY #0 05/16/17 09/16/19 mcg (5,000 unit) capsule multivitamin (Multiple Vitamins) 2 tab PO QDAY #0 05/16/17 09/16/19 propranolol 10 mg tablet 10 mg PO Q DAY #0 05/16/17 09/16/19 omeprazole magnesium 20 mg 40 mg PO DAILY 09/16/19 09/16/19 tablet,delayed release (Prilosec OTC) Allergies Allergy/AdvReac Type Severity Reaction Status Date / Time No Known Drug Allergies Allergy Verified 10/13/20 18:28 Review of Systems Review of Systems Narrative: GENERAL: Denies chills, fatigue, malaise, fever, sweats, travel HEENT: Denies sinus pain, ear pain, sore throat, difficulty swallowing, neck pain RESPIRATORY: Denies dyspnea, cough, wheezing, hemoptysis, sputum. CARDIOVASCULAR: Denies chest pain, palpitations, orthopnea, edema GASTROINTESTINAL: Denies nausea, vomiting, abdominal pain, diarrhea, constipation, melena. : Denies dysuria, frequency, incontinence, hematuria, urinary retention, flank pain. MUSCULOSKELETAL: See HPI SKIN: No rash, no erythema, no pruritus NEUROLOGIC: Denies weakness, dizziness, headache, numbness, change in speech, confusion PSYCHIATRIC: No concerning psychosocial issues. 12 point review of systems is negative except for those stated above and HPI Patient History Medical History (Updated 10/14/20 @ 02:48 by Gypsy Khalil DO) Bruises easily Has a tremor Hiatal hernia Hypertension Seasonal allergies TBI (traumatic brain injury) (~2010) Surgical History History of colon resection Social History household members: spouse Smoking Status: Current some day smoker Smoking Status: Current some day smoker alcohol intake frequency: 3 or more drinks per day Substance Use Type: does not use Exam Initial Vital Signs Initial Vital Signs: Vital Signs Temperature 97.9 F 10/13/20 18:27 Pulse Rate 70 10/13/20 18:27 Respiratory Rate 14 10/13/20 18:27 Blood Pressure 158/88 H 10/13/20 18:27 Pulse Oximetry 98 10/13/20 18:27 GENERAL: Alert well-appearing 70-year-old male HEENT: Head atraumatic,EOMI, pupils reactive, face symmetric, moist mucous membranes CARDIOVASCULAR: Regular rate and rhythm without murmurs, rubs or gallops. RESPIRATORY: Breath sounds equal bilaterally, no wheezes rales or rhonchi. ABDOMEN: Soft, nontender. Normoactive bowel sounds all 4 quadrants. No guarding or rebound. EXTREMITIES: Normal range of motion, no clubbing. Significant whole leg swelling of the left side strong distal pedal pulses felt no significant erythema no pain to palpation NEUROLOGICAL: Alert and oriented x4.Normal gait and speech. SKIN: Warm, dry, no laceration, no petechiae, no rashes or lesions. Course Orders Ordered: ED Orders 10/13/20 23:00 Complete Blood Count AUTO DIFF Stat Comprehensive Metabolic Panel Stat Partial Thromboplastin Time Stat Prothrombin Time INR Stat Troponin & CK Cardiac Panel Stat 10/13/20 23:16 US periph venous low extrem lt Stat EKG-12 Lead Stat 10/14/20 00:06 D Dimer Stat 10/14/20 01:06 CT LE LT w con Stat Vital Signs Vital signs: Vital Signs - 8 hr 10/14/20 02:14 Pulse Rate 60 Respiratory Rate 18 Blood Pressure 150/77 H Pulse Oximetry 99 MDM - Extremity (Nontraumatic) Lab Data Result diagrams: 10/13/20 23:00 10/13/20 23:00 Labs: Lab Results 10/13/20 10/13/20 10/13/20 Range/Units 23:00 23:00 23:00 WBC 6.2 (4.5-11.0) X10^3/uL RBC 4.33 L (4.5-5.9) X10^6/uL Hgb 14.3 (13.5-17.5) g/dL Hct 42.4 (41-53) % MCV 97.8 (80-100) fL MCH 33.1 (26-34) PG MCHC 33.8 (30-36) % RDW 12.9 (11.6-14.8) % Plt Count 213 (150-400) X10^3/uL Neut % (Auto) 67.7 (50-75) % Lymph % (Auto) 21.1 L (25-40) % [place] % (Auto) 10.3 (3-14) % Eos % (Auto) 0.4 L (2-4) % Baso % (Auto) 0.5 (0-2) % Neut # (Auto) 4200 (5127-8466) /uL Lymph # (Auto) 1300 (7116-7711) /uL [place] # (Auto) 600 (0-900) /uL Eos # (Auto) 0 (0-450) /uL Baso # (Auto) 0 (0-100) /uL PT 11.1 (10.1-12.7) SECONDS INR 1.0 (0.9-1.3) APTT (26.4-36.2) SECONDS D-Dimer (<230) ng/mL Sodium 129 L (137-145) mmol/L Potassium 4.1 (3.4-5.1) mmol/L Chloride 95 L (98-107) mmol/L Carbon Dioxide 27 (22-32) mmol/L BUN 4 L (9-20) mg/dL Creatinine 0.49 L (0.66-1.25) mg/dL Estimated GFR > 60.0 (>60) mL/min BUN/Creatinine Ratio 8.2 (6-22) Glucose 99 (80-110) mg/dL Calcium 9.1 (8.4-10.2) mg/dL Total Bilirubin 1.4 H (0.2-1.3) mg/dL AST 58 (17-59) IU/L ALT 18 (<50) IU/L Alkaline Phosphatase 93 (38-126) U/L Total Creatine Kinase (55-170) U/L CK-MB (CK-2) CK-MB (CK-2) Rel Index Troponin I (0.01-0.034) ng/mL Total Protein 7.2 (6.3-8.2) g/dL Albumin 4.0 (3.5-5.0) g/dL Globulin 3.2 (1.7-4.1) g/dL Albumin/Globulin Ratio 1.3 (1.0-2.8) 10/13/20 10/13/20 10/13/20 Range/Units 23:00 23:00 23:00 WBC (4.5-11.0) X10^3/uL RBC (4.5-5.9) X10^6/uL Hgb (13.5-17.5) g/dL Hct (41-53) % MCV (80-100) fL MCH (26-34) PG MCHC (30-36) % RDW (11.6-14.8) % Plt Count (150-400) X10^3/uL Neut % (Auto) (50-75) % Lymph % (Auto) (25-40) % [place] % (Auto) (3-14) % Eos % (Auto) (2-4) % Baso % (Auto) (0-2) % Neut # (Auto) (5256-7044) /uL Lymph # (Auto) (5139-8655) /uL [place] # (Auto) (0-900) /uL Eos # (Auto) (0-450) /uL Baso # (Auto) (0-100) /uL PT (10.1-12.7) SECONDS INR (0.9-1.3) APTT 31 (26.4-36.2) SECONDS D-Dimer 1001 H (<230) ng/mL Sodium (137-145) mmol/L Potassium (3.4-5.1) mmol/L Chloride (98-107) mmol/L Carbon Dioxide (22-32) mmol/L BUN (9-20) mg/dL Creatinine (0.66-1.25) mg/dL Estimated GFR (>60) mL/min BUN/Creatinine Ratio (6-22) Glucose (80-110) mg/dL Calcium (8.4-10.2) mg/dL Total Bilirubin (0.2-1.3) mg/dL AST (17-59) IU/L ALT (<50) IU/L Alkaline Phosphatase (38-126) U/L Total Creatine Kinase 94 (55-170) U/L CK-MB (CK-2) TNP CK-MB (CK-2) Rel Index TNP Troponin I < 0.012 (0.01-0.034) ng/mL Total Protein (6.3-8.2) g/dL Albumin (3.5-5.0) g/dL Globulin (1.7-4.1) g/dL Albumin/Globulin Ratio (1.0-2.8) Imaging Data US - DVT: Radiologist's Impression: Preliminary report no DVT CT venogram lower extremity: Radiologist's Impression: Preliminary report: No definite arterial or venous occlusion in lower extremities although the veins and particularly well opacified with contrast an atherosclerotic calcification limits further evaluation of arterial flow. There is extensive pelvic and retroperitoneal adenopathy as well as more pronounced soft tissue mass in the left iliac region measuring up to 6.8 cm in diameter. This may involve the urinary bladder on the left wall. This surrounds the vascular structures and likely exhibits mass effect on iliac pain draining the left lower extremity. Malignancy is a concern here. ECG Data Interpretation: Normal sinus rhythm rate 62 OH interval 162 her S 96 OH interval 143 T-wave inversion noted in lead 3 with S 8th no Q-waves this is present in previous EKGs no acute changes MDM Narrative Medical decision making narrative: Patient's left leg is significantly swollen initial concern was for DVT however ultrasound is negative. D-dimer is then added which is quite elevated at 1000. CT venogram is performed and shows a large left iliac mass compressing on iliac vein which is prohibiting venous return causing left lower extremity edema. Patient initially was not forthcoming with no prior cancer diagnosis is. However this may be a new cancer certainly more evaluation and studies need to be done. Patient is not in any significant pain. I do recommend the patient take aspirin once daily to help prevent blood clot. He and state that they can get into their primary care provider in will call them 1st thing on Friday. Patient is ambulatory without any difficulty blood work is overall reassuring cover elevated D-dimer which has since been further evaluated. Discharge Plan Departure Patient Disposition: Home Clinical Impression: Left iliac fossa mass Instructions: Excision of Mass Activity Restrictions/Additional Instructions: *You have been diagnosed with iliac mass *What to do: You were found today to have a mass of your left iliac region which measures is about 6.8 cm, this is concerning for cancer. It is causing blockage of the veins which is leading to swelling of your left leg. You will definitely need more evaluation and further studies. It is important that he follow up with her primary care provider as soon as possible *Continue to take medications as directed Aspirin 81 mg daily *Follow up with your primary care provider in 2-3 days *Return to ER if you should have increasing leg pain, shortness of breath, chest pain or any new, worsening or concerning symptoms Prescriptions: No Action hydrochlorothiazide 12.5 MG capsule 12.5 mg PO QDAY Qty: 0 RF: 0 propranolol 10 MG tablet 10 mg PO Q DAY Qty: 0 RF: 0 multivitamin [Multiple Vitamins] 1 EACH tablet 2 tab PO QDAY Qty: 0 RF: 0 amlodipine 10 MG tablet 10 mg PO Q DAY Qty: 0 RF: 0 cholecalciferol (vitamin D3) 5,000 UNIT capsule 1,000 unit PO Q DAY Qty: 0 RF: 0 omeprazole magnesium [Prilosec OTC] 20 mg Tablet,Delayed Release (Dr/Ec) 40 mg PO DAILY RF: 0 Referrals: Shabnam Scruggs DO [Primary Care Provider] -
[2020-10-14 00:45] LABS: D Dimer 1001 ng/mL (<230)
--- NOTE | 2020-10-14 01:06 | DI.CT.S_ITS ---
PROCEDURE: CT LE LT W CON INDICATIONS: leg swollen high daniel for dvt TECHNIQUE: After the administration of intravenous contrast, 3 mm axial sections acquired of the pelvis and bilateral lower extremities , with coronal and sagittal reformats. COMPARISON: [facility], , CT ABDOMEN/PELVIS WITH CONTRAST, 05/22/2017, 9:25. [facility], US PERIPH VENOUS LOW EXTREM LT, 10/13/2020, 23:41. FINDINGS: In the lower abdomen, both kidneys enhance and excrete contrast. Distribution bowel loops unremarkable. Prior sigmoid colon anastomosis noted, intact. Periaortic retroperitoneal adenopathy measures up to 1.6 cm In the pelvis, left sided retroperitoneal adenopathy surrounds the common iliac vasculature appears to invade the left iliopsoas muscle. Conglomerate mass measures 4.1 cm. Second conglomerate johnathan mass surrounds the left external iliac vasculature and is adjacent to the left wall of the bladder with minimal mass effect. There is low central attenuation reflecting internal necrosis. Mass measures 7.4 x 6.4 cm overall. Arterial vasculature shows heavy atherosclerotic vascular calcification present. Evaluation of the veins are limited by bolus timing. In the lower extremities, bilateral inguinal adenopathy is noted. Right-sided scrotal hydrocele present. Dense atherosclerotic vascular calcification noted in the peripheral vasculature. Evaluation of the veins are limited by bolus timing. Subcutaneous edema noted in the left lower extremity. Underlying osseous structures are unremarkable throughout without evidence of lytic lesion. IMPRESSION: 1. Periaortic retroperitoneal and left iliac metastatic adenopathy. Multifocal conglomerate johnathan mass lesions surrounds the left iliac vasculature as above 2. Dense diffuse atherosclerotic vascular calcification. Distal arterial vasculature appears patent. Venous evaluation is limited by bolus timing. Given mass lesion surrounding the iliac vasculature and left lower extremity edema, there is probably least venous compromise. 3. Incidental sigmoid anastomotic suture intact. Note: Final report is concordant with preliminary interpretation by [employer] Approved by: Dov Wheeler M.D. on 10/14/2020 at 7:08
[2020-10-14 02:14] VITALS: BP 150/77; PULSE 60; RESP 18; O2SAT 99
== END 2020-10-14 02:57 | disposition home or self-care (01) ==
PROVIDERS: Emergency Provider Emergency Medicine; PCP Family Medicine
DX: R19.09 Other intra-abdominal and pelvic swelling, mass and lump (principal); R60.9 Edema, unspecified; R07.9 Chest pain, unspecified
CPT/HCPCS: 36415; 73701; 80053; 82550; 84484; 85025; 85379; 85610; 85730; 93005; 93971; 99284; Q9967

== ENCOUNTER 2020-10-26 13:03 | Emergency (ER) | payer OTHER, MEDICARE, SELFPAY ==
[2020-10-26] VITALS (36 sets, daily range): BP systolic 99–150; BP diastolic 70–107; PULSE 69–112; RESP 13–26; TEMP 36.6; O2SAT 87–100; BMI 28.7
--- NOTE | 2020-10-26 13:22 | DI.US.S_ITS ---
PROCEDURE: [facility] VENOUS LOW EXTREM LT INDICATIONS: LEFT ILIAC MASS; INCREASING SWELLING TECHNIQUE: Real-time imaging, as well as color and pulse Doppler interrogation, were performed of the lower extremity deep veins from the inguinal ligament to the popliteal fossa. COMPARISON: [facility], [facility] VENOUS LOW EXTREM LT, 10/13/2020, 23:41. FINDINGS: Extensive intraluminal filling defects are noted in left great saphenous vein, common femoral vein, superficial femoral vein and popliteal vein with absence of flow and poor compression in the above-mentioned vessels. IMPRESSION: Extensive occlusive venous thrombosis throughout visualized left lower extremity veins. Dictated by: Nolan Castaneda M.D. on 10/26/2020 at 14:18 Approved by: Nolan Castaneda M.D. on 10/26/2020 at 14:19
--- NOTE | 2020-10-26 13:31 | ED_ITS ---
HPI - Extremity Problem <Bryson Kerr PA-C - Last Filed: 10/28/20 11:58> General Chief complaint: Extremity Problem,Nontraumatic Stated complaint: Increased Swelling Left Upper Leg Time Seen by Provider: 10/26/20 13:19 Source: patient Mode of arrival: Ambulatory Limitations: no limitations History of Present Illness HPI Narrative: Chevy presents today for chief complaint of worsening left leg swelling. He was seen here nearly 2 weeks ago an ultrasound was done which did not show any significant evidence of blood clot. CT scan was done the next day which showed a mass near his left iliac artery. He has history of colon cancer and there is high suspicion for metastatic disease. He has a PET scan scheduled for next week. He reports that his symptoms feel like he pulled his groin muscle. He denies any significant overlying skin changes, abdominal pain, chest pain, shortness of breath, fever or any other acute concerns or complaints at this time. Related Data Home Medications Medication Instructions Recorded Confirmed hydrochlorothiazide 12.5 mg capsule 12.5 mg PO QDAY #0 12/08/16 09/16/19 amlodipine 10 mg tablet 10 mg PO Q DAY #0 05/16/17 12/15/18 cholecalciferol (vitamin D3) 125 1,000 unit PO Q DAY #0 05/16/17 09/16/19 mcg (5,000 unit) capsule multivitamin (Multiple Vitamins) 2 tab PO QDAY #0 05/16/17 09/16/19 propranolol 10 mg tablet 10 mg PO Q DAY #0 05/16/17 09/16/19 omeprazole magnesium 20 mg 40 mg PO DAILY 09/16/19 09/16/19 tablet,delayed release (Prilosec OTC) Previous Rx's Medication Instructions Recorded apixaban 5 mg (74 tabs) tablets in See Rx Instructions .ROUTE 10/26/20 a dose pack (Eliquis DVT-PE Treat .COMPLEX #74 ea 30D Start) Allergies Allergy/AdvReac Type Severity Reaction Status Date / Time No Known Drug Allergies Allergy Verified 10/26/20 13:09 Review of Systems <Bryson Kerr PA-C - Last Filed: 10/28/20 11:58> Review of Systems Narrative: As per HPI Patient History <Bryson Kerr PA-C - Last Filed: 10/28/20 11:58> Medical History (Updated 10/26/20 @ 23:41 by Karl Calix DO) Bruises easily Has a tremor Hiatal hernia Hypertension Seasonal allergies TBI (traumatic brain injury) (~2010) Surgical History History of colon resection Social History household members: spouse Smoking Status: Current some day smoker Smoking Status: Current some day smoker alcohol intake frequency: 3 or more drinks per day Substance Use Type: does not use Exam <Bryson Kerr PA-C - Last Filed: 10/28/20 11:58> Narrative Exam Narrative: Exam Narrative: Const General: cooperative, healthy appearing, comfortable, no acute distress, well developed and well groomed Nutritional Appearance: average body habitus Orientation: alert and oriented x3 HENMT Head: normal to inspection and atraumatic Ears: hearing grossly normal bilaterally Nose: external nose normal and nares normal Face and sinus: normal facial exam Neck Neck: normal visual inspection and supple Resp Effort & Inspection: normal respiratory effort, able to speak in complete sentences, no audible wheezes, not labored, no nasal flaring and no respiratory distress, clear to auscultation bilaterally Cardiac Regular rate and rhythm, no discernible murmurs, rubs or gallops Neuro General: alert, oriented x3, gait normal, tone normal and moves all extremities Cognition: normal cognition Speech: speech normal Gait: normal gait Extremities Significant nonpitting edema to entire left leg. No significant point tenderness. No significant overlying skin abnormalities. Psych Appearance: grossly normal and well kempt Mental Status: mental status grossly normal Speech and Movement: speech and movement normal Mood: congruent mood Affect: normal affect Initial Vital Signs Initial Vital Signs: Vital Signs Temperature 97.8 F 10/26/20 13:05 Pulse Rate 82 10/26/20 13:05 Respiratory Rate 14 10/26/20 13:05 Blood Pressure 149/83 H 10/26/20 13:05 Pulse Oximetry 98 10/26/20 13:05 <Karl Calix DO - Last Filed: 10/27/20 02:29> Initial Vital Signs Initial Vital Signs: Vital Signs Temperature 97.8 F 10/26/20 13:05 Pulse Rate 82 10/26/20 13:05 Respiratory Rate 14 10/26/20 13:05 Blood Pressure 149/83 H 10/26/20 13:05 Pulse Oximetry 98 10/26/20 13:05 Course <Bryson Kerr PA-C - Last Filed: 10/28/20 11:58> Course Course Narrative: Patient was being stood up to discharge and had a syncopal episode, collapsing back onto the gurney. He became tachycardic and hypoxemic after this. He was put on 2 L nasal cannula. Blood pressure is stable at this time. I am highly concerned that he threw a clot. We will CT his chest and consult the hospitalist at this time. Additional Information: Bilateral PEs noted on CT scan in addition to pulmonary infarct and septal bowing. I consulted our incendiaries supervisor to see if he would be a good candidate for EKOS. Dr. Jones did not think that this patient would be a good candidate at this time. Recommended medical management instead of intervention. I then spoke with our hospitalist Dr Morales, he thought that because of the patients right heart strain, the patient would be better treated at a hospital that had a higher level care available. I spoke with the incendiaries supervisor at [facility]. He thinks that this patient may be a candidate it with just medical management and not clot retrieval. However, he wants to review the CT images prior to making a call. We have pushed the CT scan to [facility] at this time. Cryptographic Machine Operator recommended a half dose of tPA, 50 mg, if the patient decompensates. Orders Ordered: Discontinued Medications Dextrose (Dextrose 50 % In Water 25 Gm/50 Ml Syringe) 25 gm IV NOW ONE Stop: 10/26/20 17:20 Last Admin: 10/26/20 17:20 Dose: 12.5 gm Documented by: BRIANDA Enoxaparin Sodium (Enoxaparin 40 Mg/0.4 Ml Syringe) 90 mg 1 mg/kg (90 mg) SUBCUT NOW ONE Stop: 10/26/20 16:28 Last Admin: 10/26/20 16:54 Dose: Not Given Documented by: QAMAR Enoxaparin Sodium (Enoxaparin 100 Mg/Ml Syringe) 90 mg 1 mg/kg (90 mg) SUBCUT NOW ONE Stop: 10/26/20 16:46 Last Admin: 10/26/20 16:54 Dose: 90 mg Documented by: QAMAR Sodium Chloride (Normal Saline 0.9%) 500 mls @ 1,000 mls/hr IV BOLUS ONE Stop: 10/26/20 17:43 Last Infusion: 10/26/20 19:39 Dose: 0 mls/hr Documented by: Admin: 10/26/20 17:18 Dose: 1,000 mls/hr Documented by: BRIANDA Sodium Chloride (Normal Saline 0.9%) 1,000 mls @ 125 mls/hr IV CONT CALOS Last Infusion: 10/27/20 02:58 Dose: 0 mls/hr Documented by: Admin: 10/27/20 01:08 Dose: 125 mls/hr Documented by: RAE Vital Signs Vital signs: Vital Signs - 8 hr 10/26/20 18:30 10/26/20 18:45 10/26/20 19:00 Pulse Rate 111 H 96 H 109 H Respiratory Rate 23 17 21 Blood Pressure 143/78 H 130/80 136/82 Pulse Oximetry 98 99 96 10/26/20 19:15 10/26/20 19:30 10/26/20 19:45 Pulse Rate 111 H 112 H 112 H Respiratory Rate 18 18 19 Blood Pressure 139/83 136/83 147/86 H Pulse Oximetry 97 98 97 10/26/20 20:00 10/26/20 20:15 10/26/20 20:30 Pulse Rate 104 H 105 H 105 H Respiratory Rate 20 24 18 Blood Pressure 130/78 122/79 121/79 Pulse Oximetry 97 97 97 10/26/20 20:45 10/26/20 21:00 10/26/20 21:15 Pulse Rate 99 H 96 H 97 H Respiratory Rate 17 13 16 Blood Pressure 121/80 110/75 119/75 Pulse Oximetry 97 97 94 10/26/20 21:30 10/26/20 21:45 10/26/20 22:00 Pulse Rate 94 H 93 H 91 H Respiratory Rate 14 17 15 Blood Pressure 102/74 107/75 116/76 Pulse Oximetry 94 95 94 10/26/20 22:15 10/26/20 22:30 10/26/20 22:45 Pulse Rate 90 88 88 Respiratory Rate 16 16 15 Blood Pressure 118/83 121/85 110/76 Pulse Oximetry 95 95 95 <Karl Calix, DO - Last Filed: 10/27/20 02:29> Course Additional Information: Bilateral PEs noted on CT scan in addition to pulmonary infarct and septal bowing. I consulted our incendiaries supervisor to see if he would be a good candidate for EKOS. Dr. Jones did not think that this patient would be a good candidate at this time. Recommended medical management instead of intervention. I then spoke with our hospitalist Dr Morales, he thought that because of the patients right heart strain, the patient would be better treated at a hospital that had a higher level care available. I spoke with the incendiaries supervisor at [facility]. He thinks that this patient may be a candidate it with just medical management and not clot retrieval. However, he wants to review the CT images prior to making a call. We have pushed the CT scan to [facility] at this time. Cryptographic Machine Operator recommended a half dose of tPA, 50 mg, if the patient decompensates. 2004 Yogi: Patient received in sign-out, currently struggling to find beds. Patient resting comfortably, BP in the 140s. HR in the upper 90s. Just received call back from ICU at [facility]. No beds. They do recommend 1/2 dose TPA for HR 110 and over. Orders Ordered: Discontinued Medications Dextrose (Dextrose 50 % In Water 25 Gm/50 Ml Syringe) 25 gm IV NOW ONE Stop: 10/26/20 17:20 Last Admin: 10/26/20 17:20 Dose: 12.5 gm Documented by: BRIANDA Enoxaparin Sodium (Enoxaparin 40 Mg/0.4 Ml Syringe) 90 mg 1 mg/kg (90 mg) SUBCUT NOW ONE Stop: 10/26/20 16:28 Last Admin: 10/26/20 16:54 Dose: Not Given Documented by: QAMAR Enoxaparin Sodium (Enoxaparin 100 Mg/Ml Syringe) 90 mg 1 mg/kg (90 mg) SUBCUT NOW ONE Stop: 10/26/20 16:46 Last Admin: 10/26/20 16:54 Dose: 90 mg Documented by: QAMAR Sodium Chloride (Normal Saline 0.9%) 500 mls @ 1,000 mls/hr IV BOLUS ONE Stop: 10/26/20 17:43 Last Infusion: 10/26/20 19:39 Dose: 0 mls/hr Documented by: Admin: 10/26/20 17:18 Dose: 1,000 mls/hr Documented by: BRIANDA Sodium Chloride (Normal Saline 0.9%) 1,000 mls @ 125 mls/hr IV CONT CALOS Last Infusion: 10/27/20 02:58 Dose: 0 mls/hr Documented by: Admin: 10/27/20 01:08 Dose: 125 mls/hr Documented by: RAE Reevaluation(s) Reevaluation #1: Patient received in sign-out from Cirilo HOWARD. I have performed an independent history and physical exam. Patient is resting comfortably, heart rate in the 80s, blood pressure 105 and no signs of respiratory distress Consultations Consultation #1: Dr. Hernandez ([facility] Hospitalist) Vital Signs Vital signs: Vital Signs - 8 hr 10/26/20 18:30 10/26/20 18:45 10/26/20 19:00 Pulse Rate 111 H 96 H 109 H Respiratory Rate 23 17 21 Blood Pressure 143/78 H 130/80 136/82 Pulse Oximetry 98 99 96 10/26/20 19:15 10/26/20 19:30 10/26/20 19:45 Pulse Rate 111 H 112 H 112 H Respiratory Rate 18 18 19 Blood Pressure 139/83 136/83 147/86 H Pulse Oximetry 97 98 97 10/26/20 20:00 10/26/20 20:15 10/26/20 20:30 Pulse Rate 104 H 105 H 105 H Respiratory Rate 20 24 18 Blood Pressure 130/78 122/79 121/79 Pulse Oximetry 97 97 97 10/26/20 20:45 10/26/20 21:00 10/26/20 21:15 Pulse Rate 99 H 96 H 97 H Respiratory Rate 17 13 16 Blood Pressure 121/80 110/75 119/75 Pulse Oximetry 97 97 94 10/26/20 21:30 10/26/20 21:45 10/26/20 22:00 Pulse Rate 94 H 93 H 91 H Respiratory Rate 14 17 15 Blood Pressure 102/74 107/75 116/76 Pulse Oximetry 94 95 94 10/26/20 22:15 10/26/20 22:30 10/26/20 22:45 Pulse Rate 90 88 88 Respiratory Rate 16 16 15 Blood Pressure 118/83 121/85 110/76 Pulse Oximetry 95 95 95 MDM - Extremity (Nontraumatic) <Bryson Kerr PA-C - Last Filed: 10/28/20 11:58> Lab Data Result diagrams: 10/26/20 14:29 10/26/20 14:29 Labs: Lab Results 10/26/20 10/26/20 10/26/20 Range/Units 14:29 14:29 14:29 WBC 8.6 (4.5-11.0) X10^3/uL RBC 4.18 L (4.5-5.9) X10^6/uL Hgb 13.8 (13.5-17.5) g/dL Hct 40.1 L (41-53) % MCV 95.9 (80-100) fL MCH 33.2 (26-34) PG MCHC 34.6 (30-36) % RDW 12.9 (11.6-14.8) % Plt Count 249 (150-400) X10^3/uL Neut % (Auto) 70.0 (50-75) % Lymph % (Auto) 15.5 L (25-40) % [place] % (Auto) 13.2 (3-14) % Eos % (Auto) 0.6 L (2-4) % Baso % (Auto) 0.7 (0-2) % Neut # (Auto) 6000 (8630-1678) /uL Lymph # (Auto) 1300 (6245-9448) /uL [place] # (Auto) 1100 H (0-900) /uL Eos # (Auto) 100 (0-450) /uL Baso # (Auto) 100 (0-100) /uL PT 11.7 (10.1-12.7) SECONDS INR 1.1 (0.9-1.3) Sodium 123 L (137-145) mmol/L Potassium 4.4 (3.4-5.1) mmol/L Chloride 90 L (98-107) mmol/L Carbon Dioxide 27 (22-32) mmol/L BUN 2 L (9-20) mg/dL Creatinine 0.43 L (0.66-1.25) mg/dL Estimated GFR > 60.0 (>60) mL/min BUN/Creatinine Ratio 4.7 L (6-22) Glucose 95 (80-110) mg/dL Calcium 9.2 (8.4-10.2) mg/dL Total Bilirubin 0.7 (0.2-1.3) mg/dL AST 44 (17-59) IU/L ALT 16 (<50) IU/L Alkaline Phosphatase 94 (38-126) U/L Total Creatine Kinase (55-170) U/L CK-MB (CK-2) CK-MB (CK-2) Rel Index Troponin I (0.01-0.034) ng/mL NT-Pro-B Natriuret Pep (<125) pg/mL Total Protein 7.3 (6.3-8.2) g/dL Albumin 4.0 (3.5-5.0) g/dL Globulin 3.3 (1.7-4.1) g/dL Albumin/Globulin Ratio 1.2 (1.0-2.8) Urine Color Urine Appearance Urine pH (4.5-8.0) Ur Specific [place] (1.000-1.035) Urine Protein (Negative) Urine Glucose (UA) (Negative) g/dL Urine Ketones (NEGATIVE) Urine Occult Blood (Negative) Urine Nitrate (Negative) Urine Bilirubin (NEGATIVE) Urine Urobilinogen (0.2) E.U./dL Ur Leukocyte Esterase (NEGATIVE) Urine RBC (0-5/HPF) Urine WBC (0-5/HPF) Urine Bacteria (None) Ur Culture Indicated? Ur Random Sodium (30-90) mmol/L SARS-CoV-2 (PCR) (Negative) 10/26/20 10/26/20 10/26/20 Range/Units 14:29 17:28 17:28 WBC (4.5-11.0) X10^3/uL RBC (4.5-5.9) X10^6/uL Hgb (13.5-17.5) g/dL Hct (41-53) % MCV (80-100) fL MCH (26-34) PG MCHC (30-36) % RDW (11.6-14.8) % Plt Count (150-400) X10^3/uL Neut % (Auto) (50-75) % Lymph % (Auto) (25-40) % [place] % (Auto) (3-14) % Eos % (Auto) (2-4) % Baso % (Auto) (0-2) % Neut # (Auto) (4825-4633) /uL Lymph # (Auto) (7333-4171) /uL [place] # (Auto) (0-900) /uL Eos # (Auto) (0-450) /uL Baso # (Auto) (0-100) /uL PT (10.1-12.7) SECONDS INR (0.9-1.3) Sodium (137-145) mmol/L Potassium (3.4-5.1) mmol/L Chloride (98-107) mmol/L Carbon Dioxide (22-32) mmol/L BUN (9-20) mg/dL Creatinine (0.66-1.25) mg/dL Estimated GFR (>60) mL/min BUN/Creatinine Ratio (6-22) Glucose (80-110) mg/dL Calcium (8.4-10.2) mg/dL Total Bilirubin (0.2-1.3) mg/dL AST (17-59) IU/L ALT (<50) IU/L Alkaline Phosphatase (38-126) U/L Total Creatine Kinase 40 L (55-170) U/L CK-MB (CK-2) TNP CK-MB (CK-2) Rel Index TNP Troponin I < 0.012 (0.01-0.034) ng/mL NT-Pro-B Natriuret Pep 59 (<125) pg/mL Total Protein (6.3-8.2) g/dL Albumin (3.5-5.0) g/dL Globulin (1.7-4.1) g/dL Albumin/Globulin Ratio (1.0-2.8) Urine Color Urine Appearance Urine pH (4.5-8.0) Ur Specific [place] (1.000-1.035) Urine Protein (Negative) Urine Glucose (UA) (Negative) g/dL Urine Ketones (NEGATIVE) Urine Occult Blood (Negative) Urine Nitrate (Negative) Urine Bilirubin (NEGATIVE) Urine Urobilinogen (0.2) E.U./dL Ur Leukocyte Esterase (NEGATIVE) Urine RBC (0-5/HPF) Urine WBC (0-5/HPF) Urine Bacteria (None) Ur Culture Indicated? Ur Random Sodium (30-90) mmol/L SARS-CoV-2 (PCR) Negative (Negative) 08/26/21 08/26/21 08/26/21 Range/Units 18:30 18:30 23:35 WBC (4.5-11.0) X10^3/uL RBC (4.5-5.9) X10^6/uL Hgb (13.5-17.5) g/dL Hct (41-53) % MCV (80-100) fL MCH (26-34) PG MCHC (30-36) % RDW (11.6-14.8) % Plt Count (150-400) X10^3/uL Neut % (Auto) (50-75) % Lymph % (Auto) (25-40) % [place] % (Auto) (3-14) % Eos % (Auto) (2-4) % Baso % (Auto) (0-2) % Neut # (Auto) (7930-2651) /uL Lymph # (Auto) (6915-5260) /uL [place] # (Auto) (0-900) /uL Eos # (Auto) (0-450) /uL Baso # (Auto) (0-100) /uL PT (10.1-12.7) SECONDS INR (0.9-1.3) Sodium (137-145) mmol/L Potassium (3.4-5.1) mmol/L Chloride (98-107) mmol/L Carbon Dioxide (22-32) mmol/L BUN (9-20) mg/dL Creatinine (0.66-1.25) mg/dL Estimated GFR (>60) mL/min BUN/Creatinine Ratio (6-22) Glucose (80-110) mg/dL Calcium (8.4-10.2) mg/dL Total Bilirubin (0.2-1.3) mg/dL AST (17-59) IU/L ALT (<50) IU/L Alkaline Phosphatase (38-126) U/L Total Creatine Kinase (55-170) U/L CK-MB (CK-2) CK-MB (CK-2) Rel Index Troponin I 0.230 H* (0.01-0.034) ng/mL NT-Pro-B Natriuret Pep 114 (<125) pg/mL Total Protein (6.3-8.2) g/dL Albumin (3.5-5.0) g/dL Globulin (1.7-4.1) g/dL Albumin/Globulin Ratio (1.0-2.8) Urine Color Yellow Urine Appearance Clear Urine pH 7.0 (4.5-8.0) Ur Specific [place] <=1.005 (1.000-1.035) Urine Protein Negative (Negative) Urine Glucose (UA) Trace H (Negative) g/dL Urine Ketones Trace H (NEGATIVE) Urine Occult Blood Negative (Negative) Urine Nitrate Negative (Negative) Urine Bilirubin Negative (NEGATIVE) Urine Urobilinogen 0.2 (0.2) E.U./dL Ur Leukocyte Esterase Negative (NEGATIVE) Urine RBC 0-1/hpf (0-5/HPF) Urine WBC None seen (0-5/HPF) Urine Bacteria None seen (None) Ur Culture Indicated? Cult not indicated Ur Random Sodium 25 L (30-90) mmol/L SARS-CoV-2 (PCR) (Negative) Point of Care Testing Glucose POC 95 <Karl Calix, DO - Last Filed: 10/27/20 02:29> Lab Data Labs: Lab Results 10/26/20 10/26/20 10/26/20 Range/Units 14:29 14:29 14:29 WBC 8.6 (4.5-11.0) X10^3/uL RBC 4.18 L (4.5-5.9) X10^6/uL Hgb 13.8 (13.5-17.5) g/dL Hct 40.1 L (41-53) % MCV 95.9 (80-100) fL MCH 33.2 (26-34) PG MCHC 34.6 (30-36) % RDW 12.9 (11.6-14.8) % Plt Count 249 (150-400) X10^3/uL Neut % (Auto) 70.0 (50-75) % Lymph % (Auto) 15.5 L (25-40) % [place] % (Auto) 13.2 (3-14) % Eos % (Auto) 0.6 L (2-4) % Baso % (Auto) 0.7 (0-2) % Neut # (Auto) 6000 (4673-4336) /uL Lymph # (Auto) 1300 (3281-6621) /uL [place] # (Auto) 1100 H (0-900) /uL Eos # (Auto) 100 (0-450) /uL Baso # (Auto) 100 (0-100) /uL PT 11.7 (10.1-12.7) SECONDS INR 1.1 (0.9-1.3) Sodium 123 L (137-145) mmol/L Potassium 4.4 (3.4-5.1) mmol/L Chloride 90 L (98-107) mmol/L Carbon Dioxide 27 (22-32) mmol/L BUN 2 L (9-20) mg/dL Creatinine 0.43 L (0.66-1.25) mg/dL Estimated GFR > 60.0 (>60) mL/min BUN/Creatinine Ratio 4.7 L (6-22) Glucose 95 (80-110) mg/dL Calcium 9.2 (8.4-10.2) mg/dL Total Bilirubin 0.7 (0.2-1.3) mg/dL AST 44 (17-59) IU/L ALT 16 (<50) IU/L Alkaline Phosphatase 94 (38-126) U/L Total Creatine Kinase (55-170) U/L CK-MB (CK-2) CK-MB (CK-2) Rel Index Troponin I (0.01-0.034) ng/mL NT-Pro-B Natriuret Pep (<125) pg/mL Total Protein 7.3 (6.3-8.2) g/dL Albumin 4.0 (3.5-5.0) g/dL Globulin 3.3 (1.7-4.1) g/dL Albumin/Globulin Ratio 1.2 (1.0-2.8) Urine Color Urine Appearance Urine pH (4.5-8.0) Ur Specific [place] (1.000-1.035) Urine Protein (Negative) Urine Glucose (UA) (Negative) g/dL Urine Ketones (NEGATIVE) Urine Occult Blood (Negative) Urine Nitrate (Negative) Urine Bilirubin (NEGATIVE) Urine Urobilinogen (0.2) E.U./dL Ur Leukocyte Esterase (NEGATIVE) Urine RBC (0-5/HPF) Urine WBC (0-5/HPF) Urine Bacteria (None) Ur Culture Indicated? Ur Random Sodium (30-90) mmol/L SARS-CoV-2 (PCR) (Negative) 10/26/20 10/26/20 10/26/20 Range/Units 14:29 17:28 17:28 WBC (4.5-11.0) X10^3/uL RBC (4.5-5.9) X10^6/uL Hgb (13.5-17.5) g/dL Hct (41-53) % MCV (80-100) fL MCH (26-34) PG MCHC (30-36) % RDW (11.6-14.8) % Plt Count (150-400) X10^3/uL Neut % (Auto) (50-75) % Lymph % (Auto) (25-40) % [place] % (Auto) (3-14) % Eos % (Auto) (2-4) % Baso % (Auto) (0-2) % Neut # (Auto) (6829-4791) /uL Lymph # (Auto) (6106-3747) /uL [place] # (Auto) (0-900) /uL Eos # (Auto) (0-450) /uL Baso # (Auto) (0-100) /uL PT (10.1-12.7) SECONDS INR (0.9-1.3) Sodium (137-145) mmol/L Potassium (3.4-5.1) mmol/L Chloride (98-107) mmol/L Carbon Dioxide (22-32) mmol/L BUN (9-20) mg/dL Creatinine (0.66-1.25) mg/dL Estimated GFR (>60) mL/min BUN/Creatinine Ratio (6-22) Glucose (80-110) mg/dL Calcium (8.4-10.2) mg/dL Total Bilirubin (0.2-1.3) mg/dL AST (17-59) IU/L ALT (<50) IU/L Alkaline Phosphatase (38-126) U/L Total Creatine Kinase 40 L (55-170) U/L CK-MB (CK-2) TNP CK-MB (CK-2) Rel Index TNP Troponin I < 0.012 (0.01-0.034) ng/mL NT-Pro-B Natriuret Pep 59 (<125) pg/mL Total Protein (6.3-8.2) g/dL Albumin (3.5-5.0) g/dL Globulin (1.7-4.1) g/dL Albumin/Globulin Ratio (1.0-2.8) Urine Color Urine Appearance Urine pH (4.5-8.0) Ur Specific [place] (1.000-1.035) Urine Protein (Negative) Urine Glucose (UA) (Negative) g/dL Urine Ketones (NEGATIVE) Urine Occult Blood (Negative) Urine Nitrate (Negative) Urine Bilirubin (NEGATIVE) Urine Urobilinogen (0.2) E.U./dL Ur Leukocyte Esterase (NEGATIVE) Urine RBC (0-5/HPF) Urine WBC (0-5/HPF) Urine Bacteria (None) Ur Culture Indicated? Ur Random Sodium (30-90) mmol/L SARS-CoV-2 (PCR) Negative (Negative) 10/26/20 10/26/20 10/26/20 Range/Units 18:30 18:30 23:35 WBC (4.5-11.0) X10^3/uL RBC (4.5-5.9) X10^6/uL Hgb (13.5-17.5) g/dL Hct (41-53) % MCV (80-100) fL MCH (26-34) PG MCHC (30-36) % RDW (11.6-14.8) % Plt Count (150-400) X10^3/uL Neut % (Auto) (50-75) % Lymph % (Auto) (25-40) % [place] % (Auto) (3-14) % Eos % (Auto) (2-4) % Baso % (Auto) (0-2) % Neut # (Auto) (5293-3115) /uL Lymph # (Auto) (1549-1394) /uL [place] # (Auto) (0-900) /uL Eos # (Auto) (0-450) /uL Baso # (Auto) (0-100) /uL PT (10.1-12.7) SECONDS INR (0.9-1.3) Sodium (137-145) mmol/L Potassium (3.4-5.1) mmol/L Chloride (98-107) mmol/L Carbon Dioxide (22-32) mmol/L BUN (9-20) mg/dL Creatinine (0.66-1.25) mg/dL Estimated GFR (>60) mL/min BUN/Creatinine Ratio (6-22) Glucose (80-110) mg/dL Calcium (8.4-10.2) mg/dL Total Bilirubin (0.2-1.3) mg/dL AST (17-59) IU/L ALT (<50) IU/L Alkaline Phosphatase (38-126) U/L Total Creatine Kinase (55-170) U/L CK-MB (CK-2) CK-MB (CK-2) Rel Index Troponin I 0.230 H* (0.01-0.034) ng/mL NT-Pro-B Natriuret Pep 114 (<125) pg/mL Total Protein (6.3-8.2) g/dL Albumin (3.5-5.0) g/dL Globulin (1.7-4.1) g/dL Albumin/Globulin Ratio (1.0-2.8) Urine Color Yellow Urine Appearance Clear Urine pH 7.0 (4.5-8.0) Ur Specific [place] <=1.005 (1.000-1.035) Urine Protein Negative (Negative) Urine Glucose (UA) Trace H (Negative) g/dL Urine Ketones Trace H (NEGATIVE) Urine Occult Blood Negative (Negative) Urine Nitrate Negative (Negative) Urine Bilirubin Negative (NEGATIVE) Urine Urobilinogen 0.2 (0.2) E.U./dL Ur Leukocyte Esterase Negative (NEGATIVE) Urine RBC 0-1/hpf (0-5/HPF) Urine WBC None seen (0-5/HPF) Urine Bacteria None seen (None) Ur Culture Indicated? Cult not indicated Ur Random Sodium 25 L (30-90) mmol/L SARS-CoV-2 (PCR) (Negative) Point of Care Testing Glucose POC [address] scan - chest: Radiologist's Impression: [address] [id number] Scan ReportSigned Patient: Chevy James LMR#: [id number]: 1950Acct:[id number]/Sex: 70 / MDate of Service: 10/26/20Loc: EDAccession Number: [id number] Procedure: CT angio chest PE protocol Ordering Provider: Bryson Kerr P.A-C PROCEDURE: CT ANGIO CHEST PE PROTOCOL INDICATIONS: likely PE TECHNIQUE: After the administration of intravenous contrast, 2 mm thick sections acquired from the pulmonary apices to the posterior costophrenic angles. Maximum intensity projection (MIP) coronal and sagittal reformats were then acquired through the thorax. For radiation dose reduction, the following was used: automated exposure control, adjustment of mA and/or kV according to patient size. COMPARISON: None. FINDINGS: Image quality: Excellent. Pulmonary arteries: Bilateral segmental filling defects noted in the pulmonary vessels, consistent with bilateral pulmonary emboli. Lungs and pleura: Left upper lobe small wedge-shaped pleural-based consolidation may represent small infarct. Remainder of the lungs and pleural spaces are clear. No pleural effusion. Mediastinum: There is bowing of the interventricular septum to the left, consistent with right heart strain. Aorta is appropriate in caliber without evidence of dissection or aneurysm. Large hiatal hernia contains the majority of the stomach Bones and chest wall: No suspicious bony lesions. Ribs and thoracic spine brenda ear intact throughout. Thyroid gland unremarkable. No axillary or supraclavicular adenopathy. Abdomen: Visualized upper abdominal solid organs appear normal in the early arterial phase of enhancement. IMPRESSION: 1. Bilateral segmental pulmonary emboli with evidence of right heart strain 2. Left upper lobe pleural base wedge-shaped consolidation may reflect pulmonary infarct. Note: Critical results were discussed with Dr. Kerr at 05:06 PM [place] time on 10/26/20 Approved by: Dov Wheeler M.D. on 10/26/2020 at 17:13 MDM Narrative Medical decision making narrative: Patient with increasing pain and swelling in left lower extremity has repeat ultrasound which demonstrates DVT. During the and of his visit patient had a syncopal episode and collapsed into the bed, at which point his discharge was canceled and a CTA was ordered which noted the above findings. Initially was tachycardic and hypoxic, imaging demonstrates heart strain but he was not a candidate for endovascular approach per discussion between multiple providers and day time crew. [facility] critical care recommended half dose Alteplase if he remained tachycardic, but he is now in the 80s/90s. Repeat troponin shows a jump to 0.2. Still no beds. This patient is above the level of our facility and further attempts made. Call to [facility] found us a bed at [facility]. I called Dr. Jones (Cardiology) back to discuss case. Still not candidate for endovascular procedure, but agrees with transfer, does not have preference between Heparin or Lovenox. Requests call to hospitalist whom is happy to accept. <Karl Calix DO - Last Filed: 10/27/20 02:29> Critical Care Time Critical Care Time: Yes Total Critical Care Time: 45 Attestation: The high probability of a clinically significant, sudden or life threatening deterioration of the [CV] system(s) required my full and direct attention, intervention and personal management. The aggregate critical care time was [45] minutes. This time is in addition to time spent performing reported procedures but includes the following: [x] Data Review and interpretation [x] Patient assessment and monitoring of vital signs [x] Documentation [x] Medication orders and management Discharge Plan Departure Patient Disposition: [facility] Clinical Impression: Left iliac fossa mass, Pulmonary embolism Acute deep vein thrombosis (DVT) of left lower extremity Qualifiers: Affected thrombotic vein of extremity: unspecified vein of extremity Qualified Code(s): I82.402 - Acute embolism and thrombosis of unspecified deep veins of left lower extremity Discharge Date/Time: 10/27/20 03:01 Prescriptions: Guru Brunson DVT-PE Treat 30D Start 5 mg (74 tabs) tablets,dose pack See Rx Instructions .ROUTE .COMPLEX Qty: 74 RF: 0 No Action hydrochlorothiazide 12.5 MG capsule 12.5 mg PO QDAY Qty: 0 RF: 0 propranolol 10 MG tablet 10 mg PO Q DAY Qty: 0 RF: 0 multivitamin [Multiple Vitamins] 1 EACH tablet 2 tab PO QDAY Qty: 0 RF: 0 amlodipine 10 MG tablet 10 mg PO Q DAY Qty: 0 RF: 0 cholecalciferol (vitamin D3) 5,000 UNIT capsule 1,000 unit PO Q DAY Qty: 0 RF: 0 omeprazole magnesium [Prilosec OTC] 20 mg Tablet,Delayed Release (Dr/Ec) 40 mg PO DAILY RF: 0 Referrals: Shabnam Scruggs DO [Primary Care Provider] -
[2020-10-26 14:40] LABS: Add Manual Diff / Slide Review NO; Basophils Absolute Auto 100 /uL (0-100); Basophils Percent Auto 0.7 % (0-2); Eosinophils Absolute Auto 100 /uL (0-450); Eosinophils Percent Auto 0.6 % (2-4); Hematocrit 40.1 % (41-53); Hemoglobin 13.8 g/dL (13.5-17.5); Lymphocytes Absolute Auto 1300 /uL (1100-4500); Lymphocytes Percent Auto 15.5 % (25-40); Mean Corpuscular HGB Conc 34.6 % (30-36); Mean Corpuscular Hemoglobin 33.2 PG (26-34); Mean Corpuscular Volume 95.9 fL (80-100); Monocytes Absolute Auto 1100 /uL (0-900); Monocytes Percent Auto 13.2 % (3-14); Neutrophils Absolute Auto 6000 /uL (1500-7000); Platelet Count 249 X10^3/uL (150-400); Red Blood Cell Count 4.18 X10^6/uL (4.5-5.9); Red Cell Distribution Width 12.9 % (11.6-14.8); White Blood Cell Count 8.6 X10^3/uL (4.5-11.0)
[2020-10-26 14:44] LABS: INR 1.1 (0.9-1.3); Prothrombin Time 11.7 SECONDS (10.1-12.7)
[2020-10-26 14:56] LABS: Alanine Aminotransferase 16 IU/L (<50); Albumin Globulin Ratio 1.2 (1.0-2.8); Alkaline Phosphatase 94 U/L (38-126); Aspartate Aminotransferase 44 IU/L (17-59); Bilirubin Total 0.7 mg/dL (0.2-1.3); Calcium 9.2 mg/dL (8.4-10.2); Carbon Dioxide 27 mmol/L (22-32); Chloride 90 mmol/L (98-107); Estimated Glomerular Filt Rate > 60.0 mL/min (>60); Globulin 3.3 g/dL (1.7-4.1); Glucose 95 mg/dL (80-110); HEMOLYSIS 28 (0-50); Potassium 4.4 mmol/L (3.4-5.1); Sodium 123 mmol/L (137-145); Total Protein 7.3 g/dL (6.3-8.2)
[2020-10-26 14:59] LABS: BUN Creatinine Ratio 4.7 (6-22); Blood Urea Nitrogen 2 mg/dL (9-20)
[2020-10-26 15:37] LABS: COVID19 - ADMIT (NP swab/PCR) Negative (Negative)
[2020-10-26] MEDS: ENOXAPARIN 100 MG/ML SYRINGE 90 MG SUBCUT (16:54)
[2020-10-26] MEDS: SODIUM CHLORIDE 0.9% 500 ML 1000 ML IV (17:18)
[2020-10-26] MEDS: DEXTROSE 50 % IN WATER 25 GM/50 ML SYRINGE IV (17:20)
--- NOTE | 2020-10-26 17:23 | DI.CT.S_ITS ---
PROCEDURE: CT ANGIO CHEST PE PROTOCOL INDICATIONS: likely PE TECHNIQUE: After the administration of intravenous contrast, 2 mm thick sections acquired from the pulmonary apices to the posterior costophrenic angles. Maximum intensity projection (MIP) coronal and sagittal reformats were then acquired through the thorax. For radiation dose reduction, the following was used: automated exposure control, adjustment of mA and/or kV according to patient size. COMPARISON: None. FINDINGS: Image quality: Excellent. Pulmonary arteries: Bilateral segmental filling defects noted in the pulmonary vessels, consistent with bilateral pulmonary emboli. Lungs and pleura: Left upper lobe small wedge-shaped pleural-based consolidation may represent small infarct. Remainder of the lungs and pleural spaces are clear. No pleural effusion. Mediastinum: There is bowing of the interventricular septum to the left, consistent with right heart strain. Aorta is appropriate in caliber without evidence of dissection or aneurysm. Large hiatal hernia contains the majority of the stomach Bones and chest wall: No suspicious bony lesions. Ribs and thoracic spine appear intact throughout. Thyroid gland unremarkable. No axillary or supraclavicular adenopathy. Abdomen: Visualized upper abdominal solid organs appear normal in the early arterial phase of enhancement. IMPRESSION: 1. Bilateral segmental pulmonary emboli with evidence of right heart strain 2. Left upper lobe pleural base wedge-shaped consolidation may reflect pulmonary infarct. Note: Critical results were discussed with Dr. Kerr at 05:06 PM [place] time on 10/26/20 Approved by: Dov Wheeler M.D. on 10/26/2020 at 17:13
--- NOTE | 2020-10-26 17:24 | PC.NURSE ---
Addendum entered by Jody Kwok R.N. 10/26/20 17:53: Patient denies chest pain or SOB, does c/o feeling light headed. Remembers telling his he didn't feel good and memory restarts with staff working on him. Original Note: Patient was getting dressed to be discharged when called out from room for help. Found patient being supported by his with eyes rolled back, dusky, unresponsive, and apneic. Repositioned patient back in bed, performed jaw thrust while given breaths via non-rebreather with 15L O2. BP was 89/50 HR 88. Cut shirt and applied ECG pads when patient started to spontaneous breathe on his own and responding to questions. BP became 133/84 HR 94, applied 4L by NC for oxygen support. Patient able to answer questions appropriately. D/C cancelled and new orders placed.
[2020-10-26 17:48] LABS: Creatine Kinase 40 U/L (55-170)
[2020-10-26 18:01] LABS: Troponin I < 0.012 ng/mL (0.01-0.034)
[2020-10-26 18:40] LABS: Bacteria Urine None Seen; WBC Urine None Seen (0-5/HPF)
[2020-10-26 18:41] LABS: Appearance Urine UA CLEAR; Bilirubin Urine UA NEGATIVE (NEGATIVE); Color Urine UA YELLOW; Glucose Urine UA TRACE g/dL (Negative); Ketones Urine UA TRACE (NEGATIVE); Leukocyte Esterase Urine UA NEGATIVE (NEGATIVE); Nitrite Urine UA NEGATIVE (Negative); Occult Blood Urine UA NEGATIVE (Negative); Protein Urine UA NEGATIVE (Negative); Specific Gravity Urine UA <=1.005 (1.000-1.035); Urobilinogen Urine UA 0.2 E.U./dL (0.2)
[2020-10-26 18:44] LABS: NT-proBNP (BNP-Adult 18+) 59 pg/mL (<125)
[2020-10-26 18:56] LABS: Culture Indicated Urine Cult Not Indicated; RBC Urine 0-1/HPF (0-5/HPF)
[2020-10-26 19:06] LABS: Sodium Urine Random 25 mmol/L (30-90)
[2020-10-27] VITALS (10 sets, daily range): BP systolic 96–113; BP diastolic 66–75; PULSE 75–83; RESP 12–15; O2SAT 94–96
[2020-10-27 00:07] LABS: NT-proBNP (BNP-Adult 18+) 114 pg/mL (<125)
[2020-10-27] MEDS: SODIUM CHLORIDE 0.9% 1,000 ML 125 ML IV (01:08)
== END 2020-10-27 03:01 | disposition short-term general hospital (02) ==
PROVIDERS: Physician Assistant; Emergency Provider Emergency Medicine; PCP Family Medicine
DX: I26.99 Other pulmonary embolism without acute cor pulmonale (principal); I82.402 Acute embolism and thrombosis of unspecified deep veins of left lower extremity; R19.09 Other intra-abdominal and pelvic swelling, mass and lump; R55 Syncope and collapse; Z20.822 Contact with and (suspected) exposure to COVID-19
CPT/HCPCS: 36415; 71275; 80053; 81001; 82550; 82962; 83880; 84300; 84484; 85025; 85610; 87635; 93005; 93010; 93971; 96360; 96361; 96372; 99285; 99291; C9803; J1650; Q9967

== ENCOUNTER 2021-08-22 10:45 | Emergency (ER) | payer OTHER, MEDICARE, SELFPAY ==
--- NOTE | 2021-08-22 10:52 | DI.RAD.S_ITS ---
PROCEDURE: XR CHEST 1V INDICATIONS: chest pain TECHNIQUE: One view of the chest was acquired. COMPARISON: None. FINDINGS: Surgical changes and devices: Right chest wall Port-A-Cath tip is in SVC. Lungs and pleura: Lungs are clear. No pleural effusions or pneumothorax. Mediastinum: Mediastinal contours appear normal. Heart size is normal. Bones and chest wall: No suspicious bony lesions. Overlying soft tissues appear unremarkable. IMPRESSION: No acute cardiopulmonary pathology. Dictated by: Nolan Castaneda M.D. on 08/22/2021 at 11:35 Approved by: Nolan Castaneda M.D. on 08/22/2021 at 11:36
[2021-08-22 10:55] VITALS: BP 139/84; PULSE 72; RESP 18; TEMP 36.5; O2SAT 98; BMI 28.7
[2021-08-22 11:22] LABS: Add Manual Diff / Slide Review NO; Basophils Absolute Auto 0 /uL (0-100); Basophils Percent Auto 0.6 % (0-2); Eosinophils Absolute Auto 0 /uL (0-450); Eosinophils Percent Auto 0.3 % (2-4); Hematocrit 37.9 % (41-53); Lymphocytes Absolute Auto 900 /uL (1100-4500); Lymphocytes Percent Auto 16.9 % (25-40); Mean Corpuscular HGB Conc 34.4 % (30-36); Mean Corpuscular Hemoglobin 32.8 PG (26-34); Mean Corpuscular Volume 95.5 fL (80-100); Monocytes Absolute Auto 500 /uL (0-900); Monocytes Percent Auto 9.5 % (3-14); Neutrophils Absolute Auto 3900 /uL (1500-7000); Neutrophils Percent Auto 72.7 % (50-75); Platelet Count 173 X10^3/uL (150-400); Red Blood Cell Count 3.96 X10^6/uL (4.5-5.9); Red Cell Distribution Width 13.5 % (11.6-14.8); White Blood Cell Count 5.4 X10^3/uL (4.5-11.0)
[2021-08-22 11:27] LABS: Alanine Aminotransferase 16 IU/L (<50); Albumin 4.3 g/dL (3.5-5.0); Albumin Globulin Ratio 1.3 (1.0-2.8); Alkaline Phosphatase 98 U/L (38-126); Aspartate Aminotransferase 54 IU/L (17-59); BUN Creatinine Ratio 8.9 (6-22); Blood Urea Nitrogen 4 mg/dL (9-20); Calcium 9.3 mg/dL (8.4-10.2); Carbon Dioxide 25 mmol/L (22-32); Chloride 100 mmol/L (98-107); Creatine Kinase 49 U/L (55-170); Estimated Glomerular Filt Rate > 60 mL/min (>60); Globulin 3.4 g/dL (1.7-4.1); Glucose 112 mg/dL (80-110); HEMOLYSIS 23 (0-50); Lipase 49 U/L (23-300); Magnesium 1.8 mg/dL (1.6-2.3); Potassium 4.3 mmol/L (3.4-5.1); Sodium 134 mmol/L (137-145); Total Protein 7.7 g/dL (6.3-8.2)
[2021-08-22 11:39] LABS: Troponin I < 0.012 ng/mL (0.01-0.034)
--- NOTE | 2021-08-22 11:40 | PC.NURSE ---
Pt reports 1/10 chest pain with twinges up to both sides of the jaw that began on 08/20/21 while watching Youtube. Chest pain has been 1/10 constant since Friday, the jaw pain only lasted momentarily. Pt reports receiving chemo last Friday (08/15) for prostate cancer and having his port flushed with heparin and not feeling right since then. Pt reports fatigue, sweating sometimes, nausea, dry heaves and SOB. Pt also reports runny nose which he attributes to allergies. RR 18, non-labored, 98% on RA.
[2021-08-22 11:44] VITALS: BP 152/80; PULSE 64; RESP 20; O2SAT 98
[2021-08-22 12:20] LABS: COVID19 -Nasal RAPID Negative (Negative)
[2021-08-22 13:28] LABS: D Dimer 326 ng/mL (<230)
--- NOTE | 2021-08-22 14:05 | ED.CHESTPAIN ---
HPI - Chest Pain General Chief Complaint: Chest Pain Stated Complaint: chest pain Time Seen by Provider: 08/22/21 12:36 Source: patient and family Mode of arrival: Ambulatory Limitations: no limitations History of Present Illness HPI narrative: This is a 70-year-old with history of prostate cancer, colon cancer, DVT left lower extremity and pulmonary embolism on apixaban who presents to the emergency department male who presents to the emergency department complaining of upper chest discomfort over the last 1-2 days. Patient denies any other symptoms associated with an including shortness of breath, difficulty breathing, chest tightness, fever, nausea vomiting or diarrhea. A patient states that he has been taking his medications as prescribed denies any significant feeling of fatigue. Patient states he has a history of hiatal hernia, takes 40 mg of Prilosec daily, is on amlodipine, Eliquis, chlorothiazide, and propanolol for his hypertension. Patient denies any new lower extremity swelling, denies any significant symptoms. Related Data Home Medications Medication Instructions Recorded Confirmed hydrochlorothiazide 12.5 mg capsule 12.5 mg PO QDAY ##0 12/08/16 09/16/19 amlodipine 10 mg tablet 10 mg PO Q DAY ##0 05/16/17 12/15/18 cholecalciferol (vitamin D3) 125 1,000 unit PO Q DAY ##0 05/16/17 09/16/19 mcg (5,000 unit) capsule multivitamin (Multiple Vitamins 2 tab PO QDAY ##0 05/16/17 09/16/19 tablet) propranolol 10 mg tablet 10 mg PO Q DAY ##0 05/16/17 09/16/19 omeprazole magnesium 20 mg 40 mg PO DAILY 09/16/19 09/16/19 tablet,delayed release (Prilosec OTC) Previous Rx's Medication Instructions Recorded apixaban 5 mg (74 tabs) tablets in See Rx Instructions PO .COMPLEX 10/26/20 a dose pack (Eliquis DVT-PE Treat #74 ea 30D Start) Allergies Allergy/AdvReac Type Severity Reaction Status Date / Time No Known Drug Allergies Allergy Verified 10/26/20 13:09 Review of Systems Review of Systems Narrative: General: denies fever, chills, malaise, sweats, fatigue Head/Neck: denies headache, neck pain, dizziness Eyes: denies visual changes, eye pain Cardio: denies chest pain or pressure currently, denies any palpitations, edema Respiratory: denies dyspnea, cough, orthopnea GI: denies abdominal pain, nausea, vomiting, or diarrhea : Endorses urinary retention, denies any significant pain or bladder fullness, denies frequency or incontinence MSK: denies joint pain, muscle weakness Skin: denies rash, itching, skin lesions or other Neuro: denies numbness, tingling Patient History Medical History Bruises easily Has a tremor Hiatal hernia Hypertension Seasonal allergies TBI (traumatic brain injury) (~2010) Surgical History History of colon resection Social History household members: spouse Smoking Status: Never smoker Smoking Status: Never smoker alcohol intake frequency: 3 or more drinks per day Alcohol type: wine Substance Use Type: does not use Exam Narrative Exam Narrative: Independently reviewed vitals signs and nursing notes. General: cooperative, comfortable, in no acute distress, well groomed Head: atraumatic, symmetrical facial expressions Neck: supple Eyes: equal round and reactive, EOMI, conjunctiva normal Nose: nares patent, no rhinorrhea Mouth/Throat: moist mucus membranes Cardiovascular: regular rate and rhythm S1-S2 without murmur, no peripheral edema, warm extremities Respiratory: normal effort, able to speak in complete sentences, no audible wheezing, stridor, or rales. No retractions or tachypnea. GI: abdomen soft, nontender to palpation, nondistended, no masses, no exquisite tenderness with exam, without guarding or rebound. MSK: moves all extremities, neurovascularly intact, no weakness, normal tone Skin: brisk capillary refill, no rash, no erythema Neuro: normal speech and cognition, A&O x3 Psych: mental status is grossly normal, congruent mood, normal affect, pleasant and cooperative Initial Vital Signs Initial Vital Signs: Vital Signs Temperature 97.7 F 08/22/21 10:55 Pulse Rate 72 08/22/21 10:55 Respiratory Rate 18 08/22/21 10:55 Blood Pressure 139/84 08/22/21 10:55 Pulse Oximetry 98 08/22/21 10:55 Oxygen Delivery Method 08/22/21 10:55 Course Course Course Narrative: Door Frame Builder used and patient is Guaiac stool negative Orders Ordered: ED Orders 08/22/21 10:52 XR chest 1V Stat EKG-12 Lead Stat 08/22/21 11:09 Complete Blood Count AUTO DIFF Stat Comprehensive Metabolic Panel Stat D Dimer Stat Lipase Stat Magnesium Stat Troponin & CK Cardiac Panel Stat 08/22/21 11:50 COVID19 -Nasal RAPID/Pre-Proc Stat Vital Signs Vital signs: Vital Signs - 8 hr 08/22/21 14:28 08/22/21 14:57 Pulse Rate 65 65 Respiratory Rate 18 18 Blood Pressure 139/78 139/78 Pulse Oximetry 98 98 Oxygen Delivery Method Room Air Room Air MDM - Chest Pain Lab Data Lab results narrative: D-dimer is 326, patient has known DVT and pulmonary embolism and is on Eliquis currently, his level is less than prior, no elevation in troponin Result diagrams: 08/22/21 11:09 08/22/21 11:09 Labs: Lab Results 08/22/21 08/22/21 08/22/21 Range/Units 11:09 11:09 11:09 WBC 5.4 (4.5-11.0) X10^3/uL RBC 3.96 L (4.5-5.9) X10^6/uL Hgb 13.0 L (13.5-17.5) g/dL Hct 37.9 L (41-53) % MCV 95.5 (80-100) fL MCH 32.8 (26-34) PG MCHC 34.4 (30-36) % RDW 13.5 (11.6-14.8) % Plt Count 173 (150-400) X10^3/uL Neut % (Auto) 72.7 (50-75) % Lymph % (Auto) 16.9 L (25-40) % [place] % (Auto) 9.5 (3-14) % Eos % (Auto) 0.3 L (2-4) % Baso % (Auto) 0.6 (0-2) % Neut # (Auto) 3900 (4586-6132) /uL Lymph # (Auto) 900 L (3808-5119) /uL [place] # (Auto) 500 (0-900) /uL Eos # (Auto) 0 (0-450) /uL Baso # (Auto) 0 (0-100) /uL D-Dimer 326 H (<230) ng/mL Sodium 134 L (137-145) mmol/L Potassium 4.3 (3.4-5.1) mmol/L Chloride 100 (98-107) mmol/L Carbon Dioxide 25 (22-32) mmol/L BUN 4 L (9-20) mg/dL Creatinine 0.45 L (0.66-1.25) mg/dL Estimated GFR > 60 (>60) mL/min BUN/Creatinine Ratio 8.9 (6-22) Glucose 112 H (80-110) mg/dL Calcium 9.3 (8.4-10.2) mg/dL Magnesium 1.8 (1.6-2.3) mg/dL Total Bilirubin 1.0 (0.2-1.3) mg/dL AST 54 (17-59) IU/L ALT 16 (<50) IU/L Alkaline Phosphatase 98 (38-126) U/L Total Creatine Kinase 49 L (55-170) U/L CK-MB (CK-2) TNP CK-MB (CK-2) Rel Index TNP Troponin I < 0.012 (0.01-0.034) ng/mL Total Protein 7.7 (6.3-8.2) g/dL Albumin 4.3 (3.5-5.0) g/dL Globulin 3.4 (1.7-4.1) g/dL Albumin/Globulin Ratio 1.3 (1.0-2.8) Lipase 49 (23-300) U/L SARS-CoV-2 (PCR) (Negative) 08/22/21 Range/Units 11:50 WBC (4.5-11.0) X10^3/uL RBC (4.5-5.9) X10^6/uL Hgb (13.5-17.5) g/dL Hct (41-53) % MCV (80-100) fL MCH (26-34) PG MCHC (30-36) % RDW (11.6-14.8) % Plt Count (150-400) X10^3/uL Neut % (Auto) (50-75) % Lymph % (Auto) (25-40) % [place] % (Auto) (3-14) % Eos % (Auto) (2-4) % Baso % (Auto) (0-2) % Neut # (Auto) (4714-7670) /uL Lymph # (Auto) (3179-4537) /uL [place] # (Auto) (0-900) /uL Eos # (Auto) (0-450) /uL Baso # (Auto) (0-100) /uL D-Dimer (<230) ng/mL Sodium (137-145) mmol/L Potassium (3.4-5.1) mmol/L Chloride (98-107) mmol/L Carbon Dioxide (22-32) mmol/L BUN (9-20) mg/dL Creatinine (0.66-1.25) mg/dL Estimated GFR (>60) mL/min BUN/Creatinine Ratio (6-22) Glucose (80-110) mg/dL Calcium (8.4-10.2) mg/dL Magnesium (1.6-2.3) mg/dL Total Bilirubin (0.2-1.3) mg/dL AST (17-59) IU/L ALT (<50) IU/L Alkaline Phosphatase (38-126) U/L Total Creatine Kinase (55-170) U/L CK-MB (CK-2) CK-MB (CK-2) Rel Index Troponin I (0.01-0.034) ng/mL Total Protein (6.3-8.2) g/dL Albumin (3.5-5.0) g/dL Globulin (1.7-4.1) g/dL Albumin/Globulin Ratio (1.0-2.8) Lipase (23-300) U/L SARS-CoV-2 (PCR) Negative (Negative) Urine Dip Bedside Urine Glucose Negative Bedside Urine Bilirubin - Negative Bedside Urine Ketone + 15 Urine Specific [place] 1.015 Bedside Urine Occult Blood - Negative Bedside Urine pH 6.5 Bedside Urine Protein - Negative Bedside Urine Urobilinogen +/- 1mg Bedside Urine Nitrite - Negative Bedside Urine Leukocytes - Negative Esterase ECG Data Interpretation: EKG independently reviewed by myself at 64 reveals normal sinus rhythm at 64 bpm with regular axis and intervals. No STEMI, ST segment changes, arrhythmia, or acute ischemic changes. MDM Narrative Medical decision making narrative: This is a 70-year-old male with history of colon cancer, prostate cancer, on Eliquis and currently under treatment for a mass near his iliac crest, presents to the emergency department with two days of intermittent substernal left-sided chest pain which patient thinks could be related to his hiatal hernia and gas pain. Patient endorses drinking at least three glasses of wine each night, is on 40 of omeprazole daily. His troponin is negative, EKG without any ST changes, arrhythmia, or tachycardia, COVID PCR is negative, D-dimer in setting of known DVT and pulmonary embolism on Eliquis is 326, compared with prior of 1000 in one. Patient's H&H was slightly decreased from prior with a hemoglobin of 13 and hematocrit of 37.9, compared with 13.8 and 40.1 respectively. Patient's guaiac stool was negative for blood. Chest x-ray does not show any acute cardiopulmonary pathology, Port-A-Cath is in proper position in his right SVC. Patient was given strict return precautions for any worsening of his symptoms and any association to other symptoms. He did not have any shortness of breath, abnormal breath sounds, murmurs, rubs, gallops or significant pain. Multiple causes of chest pain considered including IA, PE, pneumothorax, pneumonia, aortic dissection, and pleurisy. Patient reports no radiation, no diaphoresis, no provocation with exertion, and no vomiting. Patient is appropriate and amenable to discharge home. Vital signs are stable on repeat examination is unremarkable. Patient has been informed of results. Patient has been given strict return to ER precautions for any new or worsening symptoms. Patient understands to follow up closely with outpatient providers as instructed. Patient understands plan and agrees to discharge home. All questions and concerns answered at this time. Discharge Plan Departure Patient Disposition: Home Clinical Impression: Chest pain, atypical Instructions: DI for Angina, DI for Atypical Chest Pain Activity Restrictions/Additional Instructions: *You have been diagnosed with chest pain which which you are attributing most likely to gas. Since you are on 40 mg of Prilosec daily, this should help any acid reflux and epigastric pain related to your hiatal hernia or abdominal problems. There is a risk that you have a bleeding ulcer and I would recommend having your stool checked when you follow-up with your primary doctor. If this pain is ongoing over the next few days, please schedule follow-up as soon as possible. Otherwise follow-up at your regularly scheduled appointments. Glad to know that your stool did not have blood in it today. You can use simethicone as needed for gas, see if this helps, remember to stay upright after meals for at least 30 minutes to an hour before laying down. *What to do: *Please continue to take your regular medications as directed. [ ] New medication prescriptions sent to your pharmacy: [ ] [ ] New medication written as a paper prescription [ x] No new medications given *Please follow up with your primary care provider in 2-3 days, call for an appointment. Let them know you were seen in the Emergency Department and that we asked that you be seen for follow-up. We will electronically transmit a record of today's note if your PCP is in our system *If you do not have a primary care provider please contact [phone] to establish care with one of the [facility] primary care providers. *Return to Emergency Department if you should have any new, worsening or concerning symptoms, such as [fever greater than 101F, chills, worsening pain, persistent vomiting or other bothersome symptoms] Prescriptions: No Action hydrochlorothiazide 12.5 MG capsule 12.5 mg PO QDAY Qty: 0 propranolol 10 MG tablet 10 mg PO Q DAY Qty: 0 Label Comments: for anxiety multivitamin [Multiple Vitamins] 1 EACH tablet 2 tab PO QDAY Qty: 0 amlodipine 10 MG tablet 10 mg PO Q DAY Qty: 0 cholecalciferol (vitamin D3) 5,000 UNIT capsule 1,000 unit PO Q DAY Qty: 0 omeprazole magnesium [Prilosec OTC] 20 mg Tablet,Delayed Release (Dr/Ec) 40 mg PO DAILY Eliquis DVT-PE Treat 30D Start 5 mg (74 tabs) tablets,dose pack See Rx Instructions .ROUTE .COMPLEX Qty: 74 0RF Rx Instructions: orally per package directions Referrals: Shabnam Scruggs DO [Primary Care Provider] - Visit Report Forms: Patient Portal/API
[2021-08-22 14:28] VITALS: BP 139/78; PULSE 65; RESP 18; O2SAT 98
[2021-08-22 14:57] VITALS: BP 139/78; PULSE 65; RESP 18; O2SAT 98
== END 2021-08-22 14:30 | disposition home or self-care (01) ==
PROVIDERS: Emergency Medicine; Emergency Provider Nurse Practitioner Critical Care Medicine; PCP Family Medicine
DX: R07.89 Other chest pain (principal); Z20.822 Contact with and (suspected) exposure to COVID-19; Z79.01 Long term (current) use of anticoagulants
CPT/HCPCS: 36415; 71045; 80053; 81003; 82550; 83690; 83735; 84484; 85025; 85379; 87635; 93005; 99283; 99284; C9803

== ENCOUNTER → 2023-05-01 15:48 | Outpatient (CLI) | payer OTHER, MEDICARE, SELFPAY ==
--- NOTE | 2023-05-01 15:51 | DI.ECHO.S_ITS ---
[facility] +---------+ : : [address] : : : : [id number] : : : : Phone: [phone]---------+ Echocardiogram Report + + :Name: JOSHUA GALAN Study Date: 05/01/2023 Height: 70 in : :[facility] ReadingLocation: Weight: 200 lb : : Gender: Male BSA: 2.1 m2 : :: 1950 Age: 72 yrs BP: 152/93 mmHg: :Reason For Study: MURMUR : :Ordering Physician: LLOYD, : :TATE Crain Performed By: Jorge Johnson : :Referring: TATE DESAI : + + Interpretation Summary The ejection fraction is estimated to be 50-55%. There is moderate mitral regurgitation. There is moderate aortic valve sclerosis. There is moderately reduced leaflet mobility. The aortic valve mean gradient is 21.6 mmHg. There is mild aortic regurgitation. Probable moderate , if clinically indicated, consider TAY to better evaluate Procedure: A two-dimensional transthoracic echocardiogram with color flow and Doppler was performed. The study quality was technically adequate. There is no prior echocardiogram noted for this patient. The patient was in normal sinus rhythm during the exam. The heart rate ranged between 57-73 bpm during the study. Left Ventricle: The left ventricle is normal in size. There is borderline concentric left ventricular hypertrophy. The ejection fraction is estimated to be 50-55%. Left ventricular wall motion is normal. Right Ventricle: The right ventricle is borderline dilated. The right ventricular systolic function is normal. Atria: The left atrium is moderately dilated. Right atrial size is normal. Mitral Valve: The mitral valve is grossly normal. There is no mitral valve stenosis. There is moderate mitral regurgitation. Aortic Valve: The aortic valve is trileaflet. There is moderate aortic valve sclerosis. There is moderately reduced leaflet mobility. The peak aortic velocity is 3.29 m/sec. The aortic valve mean gradient is 21.6 mmHg. Probable moderate , if clinically indicated, consider TAY to better evaluate . There is mild aortic regurgitation. Tricuspid Valve: The tricuspid valve is normal in structure and function. There is no tricuspid stenosis. There is mild to moderate tricuspid regurgitation. The right ventricular systolic pressure is estimated to be at least 31 mmHg based on an estimated right atrial pressure of 3 mm Hg. Pulmonic Valve: The pulmonic valve is not well visualized. There is no pulmonic valvular stenosis. There is no pulmonic valvular regurgitation. Great Vessels: The aortic root is mildly dilated. The ascending aorta is mildly enlarged. The IVC is of normal diameter and collapses greater than 50% with a sniff. This suggests a low right atrial pressure of 3 mm Hg. Pericardium/ Pleura There is no pericardial effusion. There is no pleural effusion. MMode/2D Measurements & Calculations LVIDd: 4.6 cm LVOT diam: 2.3 cm LVIDs: 3.1 cm Ao root diam: 3.8 cm FS: 31.3 % asc Aorta Diam: 3.8 cm IVSd: 1.1 cm Ao Arch Diam (Prox Trans): 2.8 cm LVPWd: 1.2 cm LV desir. diameter/BSA (cm/m^2): 2.2 LV sys. diameter/BSA (cm/m^2): 1.5 LA A2 area: 23.9 cm2 RA long axis: 5.6 cm LA A4 area: 20.9 cm2 RA area: 17.9 cm2 LA length (vol): 5.3 cm RA vol: 48.5 ml LA vol: 79.5 ml RA : 23.2 ml/m2 LA vol index: 38.1 ml/m2 IVC diam: 1.9 cm RVD1 (basal): 4.3 cm RVD2 (mid): 3.8 cm TAPSE: 1.8 cm Doppler Measurements & Calculations Ao V2 max: 329.6 cm/sec LVOT Max Flavio: 85.8 cm/sec Ao V2 mean: 225.0 cm/sec LV V1 max P.9 mmHg Ao max P.0 mmHg LV V1 VTI: 22.2 cm Ao mean P.6 mmHg AAGTA(I,D): 1.2 cm2 Ao V2 VTI: 79.6 cm AGATA(V,D): 1.1 cm2 sev ratio: 0.28 AGATA indexed to BSA (cm^2/m^2): 0.55 AI P1/2t: 678.8 msec AI dec slope: 219.3 cm/sec2 MV E max flavio: 93.2 cm/sec TR max flavio: 264.1 cm/sec MV A max flavio: 62.3 cm/sec TR max P.9 mmHg MV E/A: 1.5 PA V2 max: 101.4 cm/sec Med Peak E' Flavio: 7.5 cm/sec PA V2 mean: 68.3 cm/sec E/E' med: 12.5 PA mean P.1 mmHg Lat Peak E' Flavio: 8.1 cm/sec PA pr(Accel): 48.2 mmHg E/E' lat: 11.6 E/e' average: 12.0 MV dec time: 0.14 sec MR ERO: 0.33 cm2 MR PISA: 5.6 cm2 SV(LVOT): 92.1 ml MR flow rate: 207.5 cm3/sec MR PISA radius: 0.95 cm Reading Physician:12:20 PM
== END ==
PROVIDERS: PCP Family Medicine; Referring Provider Family Medicine; Visit Provider Family Medicine
DX: R01.1 Cardiac murmur, unspecified (principal); I08.3 Combined rheumatic disorders of mitral, aortic and tricuspid valves; I77.810 Thoracic aortic ectasia; I77.89 Other specified disorders of arteries and arterioles
CPT/HCPCS: 93306

== ENCOUNTER → 2023-05-10 14:05 | Outpatient (CLI) | payer MEDICARE, OTHER, SELFPAY ==
--- NOTE | 2023-05-10 14:06 | DI.MRI.S_ITS ---
PROCEDURE: MR CERVICAL SPINE WO CON INDICATIONS: Radiculopathy, cervical region TECHNIQUE: Noncontrast sagittal T1 spin echo and T2 fast spin echo, sagittal STIR, foraminal oblique sagittal T2 fast spin echo, and axial gradient echo or T2 fast spin echo through the cervical spine. COMPARISON: [facility], , SPINE CERVICAL MIN 4VW, 10/15/2011, 16:04. FINDINGS: Image quality: Excellent. Alignment and Curvature: There is normal bony alignment. Bone Marrow: Marrow demonstrates normal overall signal. No acute compression fracture. Spinal Cord: Visualized spinal cord has normal size and signal. No cerebellar tonsillar herniation. Paraspinous Soft Tissues: No paravertebral masses. Prevertebral soft tissues are normal in thickness. C2-C3: No significant neuroforaminal or spinal canal stenosis. C3-C4: Mild bilateral uncovertebral osteoarthrosis and bilateral facet arthropathy. Mild degenerative endplate changes. Small broad-based posterior disc osteophyte complex. There is mild effacement of the anterior thecal sac. Mild bilateral neuroforaminal stenosis. No significant spinal canal stenosis. C4-C5: Degenerative endplate changes. Bilateral uncovertebral osteoarthrosis and moderate bilateral facet arthropathy. Broad-based posterior disc osteophyte complex with eccentric to the left posterior disc herniation. Findings result in severe left and mild right bilateral neuroforaminal stenosis. There is moderate spinal canal stenosis with no associated cord signal abnormalities. C5-C6: Moderate degenerative endplate changes. Mild disc space loss. Broad-based posterior disc osteophyte complex slightly eccentric to the right. Bilateral facet arthropathy. Bilateral uncovertebral osteoarthrosis. There is moderate right and mild-moderate left bilateral neuroforaminal stenosis. Mild spinal canal stenosis. C6-C7: Moderate degenerative endplate changes. Disc space loss and endplate osteophyte formation. Mild bilateral facet arthropathy. Broad-based posterior disc osteophyte complex. There is mild-moderate bilateral neuroforaminal stenosis without significant spinal canal stenosis. C7-T1: There is a small broad-based posterior disc osteophyte complex with concurrent posterior central disc herniation resulting in effacement of the anterior thecal sac. No associated cord signal abnormality. No significant neuroforaminal or spinal canal stenosis. IMPRESSION: Cervical spine without acute abnormalities. Moderate multilevel, multifactorial cervical spondylosis as detailed above by vertebral body level. Findings are most severe at C4-5. Dictated by: Jeison Yeung M.D. on 05/12/2023 at 9:01 Approved by: Jeison Yeung M.D. on 05/12/2023 at 9:33
== END ==
LOC: MRI 14:05
PROVIDERS: PCP Family Medicine; Referring Provider Family Medicine; Visit Provider Family Medicine
DX: M47.22 Other spondylosis with radiculopathy, cervical region (principal)
CPT/HCPCS: 72141

== ENCOUNTER → 2023-08-14 | Outpatient (CLI) | payer OTHER, MEDICARE, SELFPAY ==
--- NOTE | 2023-08-14 08:55 | DI.NM.S_ITS ---
DATE OF SERVICE: 08/14/2023 NUCLEAR CARDIOLOGY MYOCARDIAL PERFUSION STUDY Procedure: Exercise treadmill stress and rest myocardial perfusion imaging with gating to assess ejection fraction and regional wall motion. Ordering Provider: Dr. Guillermo Encarnacion. Indications: The patient is a 72-year-old male with moderate aortic stenosis and mitral regurgitation with exertional dyspnea and fatigue. Cardiac Stress: The patient was able to exercise for 5 minutes 47 seconds on a standard Danilo protocol suggesting mildly impaired exercise capacity with an CHAYA of +7%, achieving 7.0 METS. He had a normal heart rate response to exercise, achieving a maximum heart rate of 135 BPM (92% of his predicted maximum). He had a probable normal blood pressure response with a resting blood pressure of 130/80, which failed to increase in the first stage and blood pressure was not checked at peak exercise, but in recovery his blood pressure was 180/82. He had no chest discomfort or other anginal symptoms. His resting ECG shows sinus rhythm with fairly normal ST segments. There are no significant ST-segment shifts with stress. He had rare PVCs with exercise although notable sinus arrhythmia in recovery with occasional PVCs and PACs. At 4 minutes and 30 seconds of exercise at a heart rate of 125 BPM, 25.3 millicuries of technetium-99m Myoview was injected and he was imaged 15 minutes later using a gated SPECT acquisition protocol. Earlier in the day while at rest, he had been injected with 11.5 millicuries of technetium-99m Myoview and was imaged 15 minutes later, again using a gated SPECT acquisition protocol. Findings: 1. Raw data. There is fairly good myocardial tracer uptake without any obvious artifact. Lung/heart ratio is normal at 0.25 with a normal TID ratio of 0.98. 2. Quantitated gated SPECT: Post-stress ejection fraction is estimated at 73% without any focal wall motion abnormality. Resting ejection fraction is 74% with a normal resting end-diastolic volume of 97 mL. 3. Myocardial perfusion imaging: Post-stress supine images show a fairly normal myocardial perfusion pattern without any concerning perfusion defects, supported by normal perfusion imaging in the prone position. The resting images show a similar normal perfusion pattern without any areas of improvement. Impression: 1. Normal myocardial perfusion study. 2. No evidence for myocardial ischemia or previous myocardial infarction. 3. Normal left ventricular size and systolic function without any focal wall motion abnormality. 4. Mildly impaired exercise capacity without angina or ECG evidence of ischemia. He had rare PACs and PVCs with stress and notable sinus arrhythmia with a fairly slow rate in early recovery with occasional PVCs. His blood pressure response to exercise remains somewhat uncertain as it was not checked at peak exercise but was likely normal. dd:08/14/2023 17:28:00 d DICTATING MD/COPIES TO:Roger Brown MD
--- NOTE | 2023-08-22 10:41 | DI.NM.S_ITS ---
DATE OF SERVICE: 08/14/2023 NUCLEAR CARDIOLOGY MYOCARDIAL PERFUSION STUDY PROCEDURE: Exercise treadmill stress and rest myocardial perfusion imaging with gating to assess ejection fraction and regional wall motion. ORDERING PROVIDER: Dr. Guillermo Encarnacion. INDICATIONS: The patient is a 72-year-old male with known moderate aortic stenosis and mitral regurgitation with exertional dyspnea and fatigue. CARDIAC STRESS: The patient was able to exercise for 5 minutes 47 seconds on a standard Danilo protocol suggesting mildly impaired exercise capacity with an CHAYA of +7%, achieving 7.0 METS. He had a normal heart rate response to exercise, achieving a maximum heart rate of 135 BPM (92% of his predicted maximum). He had a probable normal blood pressure response with a resting blood pressure of 130/80, which failed to increase in the first stage and blood pressure was not checked at peak exercise, but in recovery, blood pressure was 180/82. He had no chest discomfort or other anginal symptoms. His resting ECG showed sinus rhythm with fairly normal ST segments. There are no significant ST- segment shifts with stress. He had rare PVCs with exercise, although had notable sinus arrhythmia in recovery with occasional PVCs and PACs. At 4 minutes and 30 seconds of exercise at a heart rate of 125 BPM, 25.3 millicuries of technetium-99m Myoview was injected and he was imaged 15 minutes later using a gated SPECT acquisition protocol. Earlier in the day, he had been injected with 11.5 millicuries of technetium-99m Myoview and was imaged 15 minutes later again using a gated SPECT acquisition protocol. FINDINGS: 1. Raw data. There is fairly good myocardial tracer uptake without any obvious artifact. Lung/heart ratio is normal at 0.25 with a normal TID ratio of 0.98. 2. Quantitated gated SPECT: Post-stress ejection fraction is estimated at 73% without any focal wall motion abnormality. Resting ejection fraction is 74% with a normal resting end-diastolic volume of 97 mL. 3. Myocardial perfusion imaging: Post-stress supine images show a fairly normal myocardial perfusion pattern without any concerning perfusion defects, supported by normal perfusion imaging in the prone position. The resting images show similar normal perfusion pattern without any areas of improvement. IMPRESSION: 1. Normal myocardial perfusion study. 2. No evidence for myocardial ischemia or previous myocardial infarction. 3. Normal left ventricular size and systolic function without any focal wall motion abnormality. 4. Mildly impaired exercise capacity without angina or ECG evidence of ischemia. He had rare premature atrial contractions and premature ventricular contractions with stress, although had notable sinus arrhythmia with a fairly slow rate in early recovery with occasional PVCs. His blood pressure response to exercise remains somewhat uncertain as it was not checked at peak exercise. Chevy James - POPEYE/er[place]/LINA doc#: [id number]/job#: [id number] dd: 08/14/2023 17:28:00 dt: 08/14/2023 22:13:00 DICTATING MD/COPIES TO: Roger Brown MD; Guillermo Encarnacion MD COPIES MNE: PRANAV;
== END ==
LOC: NUCM 08:26
PROVIDERS: PCP Family Medicine; Referring Provider Internal Medicine Cardiovascular Disease; Visit Provider Internal Medicine Cardiovascular Disease
DX: R93.1 Abnormal findings on diagnostic imaging of heart and coronary circulation (principal); I08.0 Rheumatic disorders of both mitral and aortic valves; R53.83 Other fatigue; R06.00 Dyspnea, unspecified
CPT/HCPCS: 78452; 93017; A9502

== ENCOUNTER 2024-05-05 08:25 | Emergency (ER) | payer OTHER, MEDICARE, SELFPAY ==
[2024-05-05] VITALS (8 sets, daily range): BP systolic 125–177; BP diastolic 74–92; PULSE 67–81; RESP 16; TEMP 37; O2SAT 93–100; BMI 28.7
--- NOTE | 2024-05-05 08:30 | ED_ITS ---
HPI - Abdominal Pain General Chief Complaint: Abdominal Pain Stated Complaint: lower L abd pain, per pt has pancreatic cancer Time Seen by Provider: 05/05/24 08:29 History of Present Illness HPI narrative: 73-year-old male past medical history hypertension, PE on Eliquis, prostate cancer not currently undergoing chemoradiation comes into the ED from home for evaluation of left inguinal/groin pain. States it started spontaneously yesterday states it is dull achy nothing making it better or worse. He states that he has not having any actual testicular pain, he is denies any trauma or falls. Denies any other symptoms such as headache visual disturbances chest pain shortness breath fever chills nausea vomiting abdominal pain or any other GI/ symptoms time. He states that he is worried because the pain is similar to when he was 1st diagnosed with prostate cancer. Related Data Home Medications Medication Instructions Recorded Confirmed hydrochlorothiazide 12.5 mg capsule 12.5 mg PO QDAY ##0 12/08/16 09/16/19 amlodipine 10 mg tablet 10 mg PO Q DAY ##0 05/16/17 12/15/18 cholecalciferol (vitamin D3) 125 1,000 unit PO Q DAY ##0 05/16/17 09/16/19 mcg (5,000 unit) capsule multivitamin (Multiple Vitamins 2 tab PO QDAY ##0 05/16/17 09/16/19 tablet) propranolol 10 mg tablet 10 mg PO Q DAY ##0 05/16/17 09/16/19 omeprazole magnesium 20 mg 40 mg PO DAILY 09/16/19 09/16/19 tablet,delayed release (Prilosec OTC) Previous Rx's Medication Instructions Recorded apixaban 5 mg (74 tabs) tablets in See Rx Instructions PO .COMPLEX 10/26/20 a dose pack (Eliquis DVT-PE Treat #74 ea 30D Start) Allergies Allergy/AdvReac Type Severity Reaction Status Date / Time No Known Drug Allergies Allergy Verified 10/26/20 13:09 Review of Systems Review of Systems Narrative: General: Denies fever, chills, weight loss HEENT: Denies headache, eye drainage, eye irritation, head trauma, sore throat, voice change Cardiovascular: Denies any chest pain, palpitations, shortness of breath, tachycardia Respiratory: Denies any shortness of breath, cough, wheeze, stridor GI/: Positive left inguinal/groin pain, Denies any abdominal pain, nausea, vomiting, diarrhea, bright red blood per rectum, melanotic stools, urinary frequency, urinary retention, dysuria, hematuria MSK: Denies any joint pain, muscle pains, swelling Skin: Denies any rashes, lesions, discoloration Neuro: Denies any headache, lightheadedness, dizziness, fainting, weakness Psych: Denies SI/HI Patient History Medical History (Updated 05/05/24 @ 10:28 by Robbie Gross DO) Hiatal hernia Has a tremor TBI (traumatic brain injury) (~2010) Seasonal allergies Bruises easily Hypertension Surgical History History of colon resection Social History household members: spouse Smoking Status: Never smoker Smoking Status: Never smoker alcohol intake frequency: 3 or more drinks per day Alcohol type: wine Exam Narrative Exam Narrative: General: Cooperative, comfortable, well-developed, not in acute distress HEENT: Normocephalic, atraumatic, PERRLA, normal sclera, eyelids normal, Neck: Active full range of motion, atraumatic Chest: Normal to inspection, negative crepitus, no overlying erythema ecchymosis Respiratory: Normal respiratory effort, not in acute respiratory distress, clear to auscultation bilaterally negative cough, wheeze, tachypnea, rhonchi, rales Cardiology: Regular rate rhythm negative gallop, murmur, rubs GI/: Normal to inspection, soft, nonrigid, no tenderness to palpation, exam, there is no tenderness to palpation of the left testicle, no overlying erythema ecchymosis or palpable hernias MSK: Full range of active range of motion of all 4 extremities, atraumatic Skin: No rashes lesions noted Neuro: Alert awake oriented x3, moves all 4 extremities spontaneously, cranial nerves intact, able to answer all questions appropriately follows commands appropriately Psych: Cooperative, negative suicidal or homicidal ideations Initial Vital Signs Initial Vital Signs: Vital Signs Pulse Oximetry 93 05/05/24 08:33 Course Orders Ordered: ED Orders 05/05/24 08:34 CT abdomen pelvis w con Stat 05/05/24 08:40 Complete Blood Count AUTO DIFF Stat Comprehensive Metabolic Panel Stat Lipase Stat MAG [Magnesium] Stat Vital Signs Vital signs: Vital Signs - 8 hr 05/05/24 08:33 05/05/24 08:34 05/05/24 08:34 Temperature Pulse Rate 81 Respiratory Rate Blood Pressure 125/77 Pulse Oximetry 93 98 Oxygen Delivery Method 05/05/24 08:37 Temperature 98.6 F Pulse Rate 74 Respiratory Rate 16 Blood Pressure 125/77 Pulse Oximetry 100 Oxygen Delivery Method Room Air MDM - Abdominal Pain Differential Diagnosis Differential diagnosis: Likely abdominal pain, constipation, diverticulitis, small bowel obstruction and other (Lymphadenopathy,) Lab Data 05/05/24 08:40 05/05/24 08:40 Labs: Lab Results 05/05/24 Range/Units 08:40 WBC 6.7 (4.5-11.0) X10^3/uL RBC 3.81 L (4.5-5.9) X10^6/uL Hgb 12.1 L (13.5-17.5) g/dL Hct 35.2 L (41-53) % MCV 92.3 (80-100) fL MCH 31.8 (26-34) PG MCHC 34.4 (30-36) % RDW 14.0 (11.6-14.8) % Plt Count 328 (150-400) X10^3/uL Neut % (Auto) 78.1 H (50-75) % Lymph % (Auto) 13.5 L (25-40) % Scott % (Auto) 7.3 (3-14) % Eos % (Auto) 0.6 L (2-4) % Baso % (Auto) 0.5 (0-2) % Neut # (Auto) 5300 (7497-1766) /uL Lymph # (Auto) 900 L (4265-3799) /uL Scott # (Auto) 500 (0-900) /uL Eos # (Auto) 0 (0-450) /uL Baso # (Auto) 0 (0-100) /uL Sodium 130 L (137-145) mmol/L Potassium 4.5 (3.4-5.1) mmol/L Chloride 96 L (98-107) mmol/L Carbon Dioxide 26 (22-32) mmol/L BUN 8 L (9-20) mg/dL Creatinine 0.72 (0.66-1.25) mg/dL Estimated GFR > 60 (>60) mL/min BUN/Creatinine Ratio 11.1 (6-22) Glucose 117 H (80-110) mg/dL Calcium 9.3 (8.4-10.2) mg/dL Magnesium 1.9 (1.6-2.3) mg/dL Total Bilirubin 0.7 (0.2-1.3) mg/dL AST 24 (17-59) IU/L ALT 12 (<50) IU/L Alkaline Phosphatase 113 (38-126) U/L Total Protein 7.9 (6.3-8.2) g/dL Albumin 4.4 (3.5-5.0) g/dL Globulin 3.5 (1.7-4.1) g/dL Albumin/Globulin Ratio 1.3 (1.0-2.8) Lipase 269 (23-300) U/L Point of care testing: Urine Dip Bedside Urine Glucose Negative Bedside Urine Bilirubin - Negative Bedside Urine Ketone - Negative Urine Specific [place] 1.015 Bedside Urine Occult Blood - Negative Bedside Urine pH 6.0 Bedside Urine Protein - Negative Bedside Urine Urobilinogen - Negative Bedside Urine Nitrite - Negative Bedside Urine Leukocytes - Negative Esterase Imaging Data CT scan - abdomen/pelvis: Radiologist's Impression: [place] [address] CT Scan Report Signed Patient: Chevy James MR#: [id number] : 1950 Acct:[id number] Age/Sex: 73 / M Date of Service: 05/05/24 Loc: ED Accession Number: [id number] Procedure: CT abdomen pelvis w con Ordering Provider: Robbie Gross D.O. PROCEDURE: CT ABDOMEN PELVIS W CON INDICATIONS: left inguinal pain, hx of pancreatic CA TECHNIQUE: After the administration of intravenous contrast, axial sections acquired from the lung bases to the pubic symphysis. Coronal and sagittal reformats were performed. For radiation dose reduction, the following was used: automated exposure control, adjustment of mA and/or kV according to patient size. COMPARISON: None. FINDINGS: Image quality: Diagnostic. Lower Chest: No significant findings. ABDOMEN: Liver: No solid mass. Gallbladder: No radiopaque gallstones or wall thickening. Biliary ducts: No biliary dilation. Pancreas: No ductal dilation. Spleen: Size is within normal limits. Adrenal Glands: No adrenal nodules. Kidneys and Ureters: Severe left-sided hydronephrosis and hydroureter. There is a transition point in the deep pelvis as it passes into the deep pelvis (series 2, image 132). Stomach and Bowel: Normal colonic caliber, without significant wall thickening. Peritoneum: Soft tissue deposits within the pelvis, including a 1.6 centimeter nodule in the left deep pelvis (series 2, image 129) and 2.7 centimeter lesion in the right deep pelvis (series 2, image 130). Ventral Wall: No significant ventral hernia. Abdominal Nodes: No retroperitoneal or mesenteric adenopathy by size criteria. Vessels: Aorta and inferior vena cava are normal in size. PELVIS: Pelvic Organs: Abnormal soft tissue extending from the left seminal vesicle into the deep pelvis (series 2, image 132). Bladder: Diffuse bladder wall thickening with perivesicular fat stranding. Pelvic Nodes: No enlarged lymph nodes. Miscellaneous: Small inguinal hernias containing fat. Bones: No aggressive osseous abnormality. IMPRESSION: Abnormal soft tissue extending from the prostate and left seminal vesicle into the deep pelvis, with associated peritoneal deposits in the deep pelvis. Differential includes peritoneal carcinomatosis from prior history of pancreatic cancer, with differential of prostate cancer. Severe left-sided hydronephrosis with delayed nephrogram, caused by obstruction from the distal ureter caused by the pelvic mass. Diffuse bladder wall thickening with perivesicular fat stranding. Findings are concerning for infection. Correlate with urinalysis. [facility] Narrative Medical decision making narrative: 73-year-old male with a history of prostate cancer not undergoing chemoradiation, but states currently on maintenance chemo pills, PE on Eliquis, hypertension presents for left inguinal/groin pain. He states that this started spontaneously yesterday. He states that nothing is making it better or worse denies any trauma or falls on exam no hernia palpated. exam unremarkable. Urinalysis not consistent with acute urinary tract infection. Patient states he is worried because when he was 1st diagnosed with prostate cancer he had similar symptoms. Patient lab work imaging performed here in the emergency department. CBC without any leukocytosis, Chem panel unremarkable, no elevation in his lipase. CT scan showing soft tissue extending from the prostate to the left seminal vesicle differential including but not limited to peritoneal carcinomatosis/prostate cancer, there is left-sided hydro with obstruction of the distal ureter by the pelvic mass however patient not in CEFERINO urinalysis not consistent with a urinary tract infection. Patient was instructed to immediately call his urologist as well as his oncologist for outpatient follow up. Patient currently not requiring any IV antibiotics not requiring any urgent or emergent interventions, patient states that he does feel comfortable and wants to follow up with his oncologist and his urologist in outpatient setting he was given strict return precautions he verbalized understanding of this and agrees to being discharged home with outpatient follow up Discharge Plan Departure Patient Disposition: Home Clinical Impression: Pelvic mass in male, Prostate cancer Activity Restrictions/Additional Instructions: Please call your urologist and your oncologist as soon as possible follow up with them in regards to your new findings of a pelvic mass Please return immediately to the emergency department if you start developing fevers have any inability to urinate or have worsening pain Please read the discharge instructions sheet carefully and bring all papers to all doctor follow-up visits, as it may contain information that your doctor may want to see. Disease processes change and evolve, if your symptoms worsen or if you develop any new symptoms that are concerning to you please return for evaluation. Your evaluation today does not show any evidence of any life- threatening/serious illnesses requiring admission to the hospital or surgery. Please follow-up with your doctor for re-evaluation in approximately 1 day. Seek immediate medical attention for any worrisome symptoms. *If you do not have a primary care provider please contact the [facility] Resource line at [phone]. They will ask some questions about your medical history and help get you set up with a doctor in the community. Prescriptions: No Action hydrochlorothiazide 12.5 MG capsule 12.5 mg PO QDAY Qty: 0 propranolol 10 MG tablet 10 mg PO Q DAY Qty: 0 Patient Comments: for anxiety multivitamin [Multiple Vitamins] 1 EACH tablet 2 tab PO QDAY Qty: 0 amlodipine 10 MG tablet 10 mg PO Q DAY Qty: 0 cholecalciferol (vitamin D3) 5,000 UNIT capsule 1,000 unit PO Q DAY Qty: 0 omeprazole magnesium [Prilosec OTC] 20 mg Tablet,Delayed Release (Dr/Ec) 40 mg PO DAILY Eliquis DVT-PE Treat 30D Start 5 mg (74 tabs) tablets,dose pack See Rx Instructions .ROUTE .COMPLEX Qty: 74 0RF Rx Instructions: orally per package directions Referrals: Shabnma Scruggs DO [Primary Care Provider] - Stand Alone Forms: Patient Portal/API/Survey
--- NOTE | 2024-05-05 08:34 | DI.CT.S_ITS ---
PROCEDURE: CT ABDOMEN PELVIS W CON INDICATIONS: left inguinal pain, hx of pancreatic CA TECHNIQUE: After the administration of intravenous contrast, axial sections acquired from the lung bases to the pubic symphysis. Coronal and sagittal reformats were performed. For radiation dose reduction, the following was used: automated exposure control, adjustment of mA and/or kV according to patient size. COMPARISON: None. FINDINGS: Image quality: Diagnostic. Lower Chest: No significant findings. ABDOMEN: Liver: No solid mass. Gallbladder: No radiopaque gallstones or wall thickening. Biliary ducts: No biliary dilation. Pancreas: No ductal dilation. Spleen: Size is within normal limits. Adrenal Glands: No adrenal nodules. Kidneys and Ureters: Severe left-sided hydronephrosis and hydroureter. There is a transition point in the deep pelvis as it passes into the deep pelvis (series 2, image 132). Stomach and Bowel: Normal colonic caliber, without significant wall thickening. Peritoneum: Soft tissue deposits within the pelvis, including a 1.6 centimeter nodule in the left deep pelvis (series 2, image 129) and 2.7 centimeter lesion in the right deep pelvis (series 2, image 130). Ventral Wall: No significant ventral hernia. Abdominal Nodes: No retroperitoneal or mesenteric adenopathy by size criteria. Vessels: Aorta and inferior vena cava are normal in size. PELVIS: Pelvic Organs: Abnormal soft tissue extending from the left seminal vesicle into the deep pelvis (series 2, image 132). Bladder: Diffuse bladder wall thickening with perivesicular fat stranding. Pelvic Nodes: No enlarged lymph nodes. Miscellaneous: Small inguinal hernias containing fat. Bones: No aggressive osseous abnormality. IMPRESSION: Abnormal soft tissue extending from the prostate and left seminal vesicle into the deep pelvis, with associated peritoneal deposits in the deep pelvis. Differential includes peritoneal carcinomatosis from prior history of pancreatic cancer, with differential of prostate cancer. Severe left-sided hydronephrosis with delayed nephrogram, caused by obstruction from the distal ureter caused by the pelvic mass. Diffuse bladder wall thickening with perivesicular fat stranding. Findings are concerning for infection. Correlate with urinalysis. Dictated by: Ayaan Mosqueda M.D. on 05/05/2024 at 10:03 Approved by: Ayaan Mosqueda M.D. on 05/05/2024 at 10:08
[2024-05-05 08:56] LABS: Add Manual Diff / Slide Review NO; Basophils Absolute Auto 0 /uL (0-100); Basophils Percent Auto 0.5 % (0-2); Eosinophils Absolute Auto 0 /uL (0-450); Eosinophils Percent Auto 0.6 % (2-4); Hematocrit 35.2 % (41-53); Hemoglobin 12.1 g/dL (13.5-17.5); Lymphocytes Absolute Auto 900 /uL (1100-4500); Lymphocytes Percent Auto 13.5 % (25-40); Mean Corpuscular HGB Conc 34.4 % (30-36); Mean Corpuscular Hemoglobin 31.8 PG (26-34); Mean Corpuscular Volume 92.3 fL (80-100); Monocytes Absolute Auto 500 /uL (0-900); Monocytes Percent Auto 7.3 % (3-14); Neutrophils Absolute Auto 5300 /uL (1500-7000); Neutrophils Percent Auto 78.1 % (50-75); Platelet Count 328 X10^3/uL (150-400); Red Blood Cell Count 3.81 X10^6/uL (4.5-5.9); White Blood Cell Count 6.7 X10^3/uL (4.5-11.0)
[2024-05-05 09:09] LABS: Alanine Aminotransferase 12 IU/L (<50); Albumin 4.4 g/dL (3.5-5.0); Albumin Globulin Ratio 1.3 (1.0-2.8); Alkaline Phosphatase 113 U/L (38-126); Aspartate Aminotransferase 24 IU/L (17-59); BUN Creatinine Ratio 11.1 (6-22); Bilirubin Total 0.7 mg/dL (0.2-1.3); Blood Urea Nitrogen 8 mg/dL (9-20); Calcium 9.3 mg/dL (8.4-10.2); Carbon Dioxide 26 mmol/L (22-32); Chloride 96 mmol/L (98-107); Estimated Glomerular Filt Rate > 60 mL/min (>60); Globulin 3.5 g/dL (1.7-4.1); Glucose 117 mg/dL (80-110); HEMOLYSIS < 15 (0-50); Lipase 269 U/L (23-300); Potassium 4.5 mmol/L (3.4-5.1); Sodium 130 mmol/L (137-145); Total Protein 7.9 g/dL (6.3-8.2)
[2024-05-05 09:10] LABS: Magnesium 1.9 mg/dL (1.6-2.3)
== END 2024-05-05 10:40 | disposition home or self-care (01) ==
PROVIDERS: Emergency Provider Student in an Organized Health Care Education/Training Program; PCP Family Medicine
DX: R19.00 Intra-abdominal and pelvic swelling, mass and lump, unspecified site (principal); C61 Malignant neoplasm of prostate; I10 Essential (primary) hypertension; Z79.01 Long term (current) use of anticoagulants; Z85.07 Personal history of malignant neoplasm of pancreas
CPT/HCPCS: 36415; 74177; 80053; 81003; 83690; 83735; 85025; 99283; 99284